=== PATIENT | female | born 1990 | race Caucasian/White ===

== ENCOUNTER → 2016-06-15 | Day surgery (SDC) | payer OTHER ==
[~2016-06-15] VITALS: Ht 175.3 cm; Wt 100.7 kg
[~2016-06-15] MED LIST: ACET50TA PO; BUPIVACAINE/EPIN 0.25% 30 ML VIAL As Ordered ONE; BUPIVACAINE/EPIN 0.25% 30 ML VIAL XX ONE; GLYCOPYRROLATE INJ 0.2 MG/ML 2 ML VIAL As Ordered ONE; IRON65TA PO; LIDOCAINE 2% INJ 100 MG/5 ML SDV (FOR ANES.) As Ordered ONE; LR 1,000 ML IV SCH; MIDAZOLAM INJ 2 MG/2 ML VIAL (J2250) As Ordered ONE; MOTR200T44 PO; NORCO, ANEXSIA 5/325MG TABLET (HYDROcodone/ACETAMINOPHEN) PO PRN; OMEP20CA3 PO; ONDANSETRON 4MG/2ML VIAL (J2405) As Ordered ONE; ONDANSETRON 4MG/2ML VIAL (J2405) IV PRN; PAXI10TA2 PO; PRENTAB40 PO; PROPOFOL 200 MG/20 ML VIAL As Ordered ONE; RISP2TAB3 PO; ROCURONIUM BROMIDE 50 MG/5 ML VIAL As Ordered ONE; SENE8.6T3 PO; SERT-141 PO; TUMS500C PO; fentaNYL 100 MCG/2 ML INJECTION (J3010) As Ordered ONE; fentaNYL 100 MCG/2 ML INJECTION (J3010) IV PRN
[2016-06-15 08:50] LABS: CONTROL LINE UCG INT CTR LINE PRESENT
[2016-06-15 14:00] VITALS: BP 120/80
--- NOTE | 2016-06-15 16:38 | RO ---
DATE OF PROCEDURE: 06/15/2016 PREOPERATIVE DIAGNOSIS: Symptomatic cholelithiasis. POSTOPERATIVE DIAGNOSIS: Symptomatic cholelithiasis. PROCEDURE: Laparoscopic cholecystectomy. SURGEON: Dr. Colon RECREATIONAL LEADER: Dr. Luna ANESTHESIA: General ESTIMATED BLOOD LOSS: 10 COMPLICATIONS: None. INDICATIONS FOR PROCEDURE: The patient 26-year-old female who presents for right upper quadrant abdominal pain, found to have gallstones on ultrasound. Recommends to proceed with laparoscopic possible open cholecystectomy. Risks and procedure not limited but including bleeding, infection, hernia formation, damage surrounding structures, need for further surgery discussed in detail with the patient. Informed consent was obtained and procedure was planned. PROCEDURE: The patient brought back to operating room three. After sufficient sedation, the abdomen was sterilely prepped and draped. Next a time out was done to confirm proper patient and proper procedure. Following that a stab incision was made in the left lower quadrant, Palmers point. A Veress needle was inserted abdomen was insufflated 50 mmHg. Next, a 5 mm infraumbilical incision made. 5 mm Optiview port was used to gain access to the abdomen with a camera. Once inside, the Veress needle site was examined. Thee are no signs of injury. Veress needle was then removed. 10 mm port was placed subxyphoid, two 5 mm ports right upper quadrant. The fundus of gallbladder was then grasped, elevated up towards the right shoulder. Cystic duct and cystic artery were both then clearly dissected. They are both clearly identified. They are both then doubly clipped and cut. Gallbladder was then removed the gallbladder fossa using electrocautery, brought out with a 10 mm EndoCatch bag. Once the gallbladder was removed, the gallbladder fossa was examined. Bleeding was controlled with hemostasis and a little bit of Lesa. Once I was completed, right upper quadrant was irrigated confirm hemostasis. Abdomen was then desufflated. Skin incision closed #4-0 Vicryl subcuticular sutures. Abdomen was cleaned and dried. Steri-Strips, 4 x 4, and tape were applied thus ending procedure.
== END | disposition home or self-care (01) ==
LOC: M SDC 07:50
PROVIDERS: ATTEND Surgery
DX: K80.18 Calculus of gallbladder with other cholecystitis without obstruction (principal); K21.9 Gastro-esophageal reflux disease without esophagitis; F31.9 Bipolar disorder, unspecified; G80.9 Cerebral palsy, unspecified; Z79.899 Other long term (current) drug therapy; F17.210 Nicotine dependence, cigarettes, uncomplicated
CPT/HCPCS: 47562; 84703; 88304; J0690; J2250; J2405; J3010

== ENCOUNTER → 2016-10-06 | Outpatient (CLI) | payer OTHER ==
[~2016-10-06] MED LIST changes: -BUPIVACAINE/EPIN 0.25% 30 ML VIAL As Ordered ONE; -BUPIVACAINE/EPIN 0.25% 30 ML VIAL XX ONE; -GLYCOPYRROLATE INJ 0.2 MG/ML 2 ML VIAL As Ordered ONE; -LIDOCAINE 2% INJ 100 MG/5 ML SDV (FOR ANES.) As Ordered ONE; -LR 1,000 ML IV SCH; -MIDAZOLAM INJ 2 MG/2 ML VIAL (J2250) As Ordered ONE; -NORCO, ANEXSIA 5/325MG TABLET (HYDROcodone/ACETAMINOPHEN) PO PRN; -ONDANSETRON 4MG/2ML VIAL (J2405) As Ordered ONE; -ONDANSETRON 4MG/2ML VIAL (J2405) IV PRN; -PROPOFOL 200 MG/20 ML VIAL As Ordered ONE; -ROCURONIUM BROMIDE 50 MG/5 ML VIAL As Ordered ONE; -SERT-141 PO; +SERT50TA PO; -fentaNYL 100 MCG/2 ML INJECTION (J3010) As Ordered ONE; -fentaNYL 100 MCG/2 ML INJECTION (J3010) IV PRN
== END ==
LOC: M WUC 11:47
PROVIDERS: ATTEND Physician Assistant
DX: Z02.1 Encounter for pre-employment examination (principal)

== ENCOUNTER → 2016-10-26 | Outpatient (CLI) | payer OTHER ==
[~2016-10-26] VITALS: Ht 175.3 cm; Wt 111.1 kg
[~2016-10-26] MED LIST changes: +BACL10TA2 PO; +LIDOCAINE 2% INJ 100 MG/5 ML SDV (FOR ANES.) As Ordered ONE; +NS 1,000 ML IV ONE; +PARO5TAB PO; +POLY150C4 PO; +PROC10TA PO; +PROPOFOL 200 MG/20 ML VIAL As Ordered ONE; +SENE8.6T PO; +SUCR1TAB56 PO; +ePHEDrine SULFATE 25 MG/5 ML(5MG/ML) SYRINGE As Ordered ONE
[2016-10-26 11:20] VITALS: BP 124/72
--- NOTE | 2016-10-26 11:27 | ROOR ---
Patient Name: Rose Akhtar Procedure Date: 10/26/2016 10:47 AM Date of : 1990 Age: 26 Room: [facility] Gender: Female Note Status: Finalized Procedure: Upper GI endoscopy Indications: Abnormal CT of the GI tract Providers: DO Horace Ross MD: SHERYL Vivar Requesting Provider: Medicines: Propofol per Anesthesia Complications: No immediate complications. Procedure: Pre-Anesthesia Assessment: - Prior to the procedure, a History and Physical was performed, and patient medications and allergies were reviewed. The patient is competent. The risks and benefits of the procedure and the sedation options and risks were discussed with the patient. All questions were answered and informed consent was obtained. Patient identification and proposed procedure were verified by the physician, the nurse, the anesthesiologist and the identification technician in the endoscopy suite. Mental Status Examination: alert and oriented. Airway Examination: normal oropharyngeal airway and neck mobility. Respiratory Examination: clear to auscultation. CV Examination: normal. Prophylactic Antibiotics: The patient does not require prophylactic antibiotics. Prior Anticoagulants: The patient has taken no previous anticoagulant or antiplatelet agents. ASA Grade Assessment: II - A patient with mild systemic disease. After reviewing the risks and benefits, the patient was deemed in satisfactory condition to undergo the procedure. The anesthesia plan was to use monitored anesthesia care (MAC). Immediately prior to administration of medications, the patient was re-assessed for adequacy to receive sedatives. The heart rate, respiratory rate, oxygen saturations, blood pressure, adequacy of pulmonary ventilation, and response to care were monitored throughout the procedure. The physical status of the patient was re-assessed after the procedure. The Endoscope was introduced through the mouth, and advanced to the third part of duodenum. The upper GI endoscopy was accomplished without difficulty. The patient tolerated the procedure well. Findings: Mild inflammation characterized by congestion (edema) and linear erosions was found in the prepyloric region of the stomach. Biopsies were taken with a cold forceps for Helicobacter pylori testing. Estimated blood loss was minimal. Impression: - Gastritis. Biopsied. Recommendation: - Patient has a contact number available for emergencies. The signs and symptoms of potential delayed complications were discussed with the patient. Return to normal activities tomorrow. Written discharge instructions were provided to the patient. - Telephone my office for pathology results in 1 week. Ramos Colon DO 10/26/2016 11:27:28 AM This report has been signed electronically. Number of Addenda: 0 Note Initiated On: 10/26/2016 10:47 AM Estimated Blood Loss: Estimated blood loss was minimal.
== END | disposition home or self-care (01) ==
LOC: M OPP 09:51
PROVIDERS: ATTEND Surgery
DX: R93.3 Abnormal findings on diagnostic imaging of other parts of digestive tract (principal); R14.0 Abdominal distension (gaseous); R10.13 Epigastric pain; K21.9 Gastro-esophageal reflux disease without esophagitis; K29.70 Gastritis, unspecified, without bleeding; R12 Heartburn; F41.9 Anxiety disorder, unspecified; F31.9 Bipolar disorder, unspecified; G43.909 Migraine, unspecified, not intractable, without status migrainosus; G80.9 Cerebral palsy, unspecified; F17.210 Nicotine dependence, cigarettes, uncomplicated; Z88.3 Allergy status to other anti-infective agents; Z79.899 Other long term (current) drug therapy; Z80.42 Family history of malignant neoplasm of prostate

== ENCOUNTER 2016-12-28 13:23 | Day surgery (SDC) | payer OTHER ==
[~2016-12-28] VITALS: Ht 175.3 cm; Wt 113.4 kg
[~2016-12-28 13:23] MED LIST changes: +HYDR50TA70 PO; -LIDOCAINE 2% INJ 100 MG/5 ML SDV (FOR ANES.) As Ordered ONE; -NS 1,000 ML IV ONE; +PAXI10TA12 PO; -PAXI10TA2 PO; -PROPOFOL 200 MG/20 ML VIAL As Ordered ONE; +RANI150T PO; +SOMA350T PO; +TIZA4CAP3 PO; -ePHEDrine SULFATE 25 MG/5 ML(5MG/ML) SYRINGE As Ordered ONE
[2016-12-28] MEDS ORDERED: PROPOFOL 200 MG/20 ML VIAL As Ordered ONE (13:30)
[2016-12-28] MEDS ORDERED: MIDAZOLAM INJ 2 MG/2 ML VIAL (J2250) As Ordered ONE (13:30)
[2016-12-28] MEDS ORDERED: ROCURONIUM BROMIDE 50 MG/5 ML VIAL/SYRINGE As Ordered ONE (13:30)
[2016-12-28] MEDS ORDERED: LIDOCAINE 2% INJ 100 MG/5 ML SDV (FOR ANES.) As Ordered ONE (13:30)
[2016-12-28] MEDS ORDERED: fentaNYL 250 MCG/5 ML INJECTION (J3010) As Ordered ONE (13:30)
[2016-12-28] MEDS ORDERED: LR 1,000 ML IV ONE (14:00)
[2016-12-28 14:10] LABS: MEAN CORPUSCULAR HGB CONC 33.7 g/dl (32.0-36.5); RED CELL DISTRIBUTION WIDTH 13.1 % (11.5-14.5); WHITE BLOOD COUNT 8.3 K/mm3 (4.0-10.0)
[2016-12-28 14:15] LABS: CONTROL LINE UCG INT CTR LINE PRESENT
[2016-12-28] MEDS ORDERED: dexameTHASONE 4 MG/ML 1ML VIAL (J1100) As Ordered ONE (15:45)
[2016-12-28] MEDS: BUPIVACAINE HCL 0.25% 30 ML VIAL As Ordered ONE (16:05)
[2016-12-28] MEDS ORDERED: METOCLOPRAMIDE INJ 10MG/2ML VIAL (J2765) As Ordered ONE (16:08)
[2016-12-28] MEDS ORDERED: GLYCOPYRROLATE INJ 0.2 MG/ML 2 ML VIAL As Ordered ONE (16:09)
[2016-12-28] MEDS ORDERED: NEOSTIGMINE 1MG/ML 5 ML SYRINGE (J2710) As Ordered ONE (16:09)
[2016-12-28] MEDS ORDERED: ONDANSETRON 4MG/2ML VIAL (J2405) As Ordered ONE (16:10)
[2016-12-28] MEDS ORDERED: KETOROLAC 60 MG/2 ML VIAL (J1885) As Ordered ONE (16:11)
[2016-12-28] MEDS ORDERED: ALBUTEROL SULFATE 2.5 MG/0.5 ML INH NEB SOLN As Ordered ONE (17:29)
[2016-12-28] MEDS ORDERED: OXYC1TAB23 PO (17:30)
[2016-12-28] MEDS ORDERED: fentaNYL 100 MCG/2 ML INJECTION (J3010) IV PRN (17:45)
[2016-12-28] MEDS ORDERED: PERCOCET 5MG/325MG TAB PO PRN ×3 (17:45→18:00)
[2016-12-28] MEDS ORDERED: LR 1,000 ML IV SCH ×2 (17:45)
[2016-12-28] MEDS ORDERED: ALBUTEROL SULFATE 2.5 MG/0.5 ML INH NEB SOLN INH ONE (17:45)
[2016-12-28] MEDS ORDERED: HYDROmorphone HCL 1 MG/ML SYRINGE (J1170) IV PRN (17:45)
[2016-12-28] MEDS ORDERED: ONDANSETRON 4MG/2ML VIAL (J2405) IV PRN (17:45)
[2016-12-28 19:15] VITALS: BP 135/78
--- NOTE | 2016-12-29 19:22 | RO ---
DATE OF PROCEDURE: 12/28/2016 PREOPERATIVE DIAGNOSIS: Undesired fertility. POSTOPERATIVE DIAGNOSIS: Undesired fertility. PROCEDURE: Laparoscopic tubal ligation. Falope ring placed on the left tube and partial salpingectomy on the right tube. SURGEON: Pipe Balderrama MD ANESTHESIA: General endotracheal. ESTIMATED BLOOD LOSS: Minimal. FINDINGS: Normal uterus. Adhesions of the right fallopian tube to the ovary and right pelvic sidewall. Normal appearing left fallopian tube and ovary, normal upper abdomen. DESCRIPTION OF PROCEDURE: Operative Summary: The patient was taken to the operating room where general endotracheal anesthesia was induced. She was prepped and draped in a sterile fashion in the dorsal lithotomy position. The bladder was emptied with a catheter. A sponge stick was placed as a uterine manipulator in the vagina. A periumbilical incision was made with the scalpel. A Veress needle was placed through this incision. A saline-filled syringe was used to assess intraperitoneal location of the Veress needle. A pneumoperitoneum was created. The Veress needles was removed. A 5 mm trocar with Visiport was inserted directly. An 8 mm suprapubic port was placed under direct visualization. Visualization of the abdomen and pelvis revealed the findings noted above. Due to adhesions of the right fallopian tube it was not possible to place any kind of device, such as a band or a clip, on the right tube. The tube was also dilated. Incision was made to partially remove the tube on the right side. A Harmonic scalpel was utilized and a 5 mm port was placed. Grasping instruments were used to elevate the tube. The tube was amputated at its initiation point and the distal portion of the tube was excised with the Harmonic scalpel. The segment of tube was then removed through the port. A Falope ring was applied without difficulty to the left fallopian tube at its midportion and excellent application was noted. Adhesions of the right fallopian tube were taken down sharply. The pneumoperitoneum was released and all instruments were removed. Sponge, instrument and needle counts were correct. Skin was closed with #4-0 Monocryl. The patient was extubated and went to the recovery room in stable condition.
== END 2016-12-28 19:15 | disposition home or self-care (01) ==
LOC: M SDC 13:23
PROVIDERS: ATTEND Specialist
DX: Z30.2 Encounter for sterilization (principal); N73.6 Female pelvic peritoneal adhesions (postinfective); N70.91 Salpingitis, unspecified; G80.2 Spastic hemiplegic cerebral palsy; D64.9 Anemia, unspecified; F17.210 Nicotine dependence, cigarettes, uncomplicated; Z79.899 Other long term (current) drug therapy; F31.9 Bipolar disorder, unspecified; K21.9 Gastro-esophageal reflux disease without esophagitis; F32.9 Major depressive disorder, single episode, unspecified; F41.9 Anxiety disorder, unspecified

== ENCOUNTER → 2017-02-01 | Outpatient (REF) | payer OTHER ==
[~2017-02-01] MED LIST changes: +OXYC1TAB23 PO
[2017-02-01 20:14] LABS: FOLATE 6.1 NG/ML; VITAMIN B12 LEVEL 711 PG/ML
[2017-02-01 20:26] LABS: ALBUMIN 3.9 GM/DL (3.2-5.2); ALBUMIN/GLOBULIN RATIO 1.05 (1.00-1.93); ALKALINE PHOSPHATASE 98 U/L (45-117); ALT/SGPT 37 U/L (12-78); ANION GAP 10 MEQ/L (8-16); AST/SGOT 16 U/L (15-37); BILIRUBIN,TOTAL 0.2 MG/DL (0.2-1.0); BLOOD UREA NITROGEN 10 MG/DL (7-18); CARBON DIOXIDE LEVEL 26 MEQ/L (21-32); CHLORIDE LEVEL 104 MEQ/L (98-107); CREATININE FOR GFR 0.91 MG/DL (0.55-1.02); FERRITIN 39 NG/ML (8-252); GLOMERULAR FILTRATION RATE > 60.0 (>60); GLUCOSE, FASTING 85 MG/DL (70-105); POTASSIUM SERUM 4.2 MEQ/L (3.5-5.1); SODIUM LEVEL 140 MEQ/L (136-145); TOTAL PROTEIN 7.6 GM/DL (6.4-8.2)
== END ==
LOC: M SFHCADAM 16:26
PROVIDERS: ATTEND Physician Assistant
DX: G62.9 Polyneuropathy, unspecified (principal); R53.82 Chronic fatigue, unspecified

== ENCOUNTER 2017-05-01 23:20 | Emergency (ER) | payer MEDICAID, OTHER, SELFPAY ==
[~2017-05-01] VITALS: Ht 177.8 cm; Wt 113.6 kg
[2017-05-01 23:21] VITALS: BP 135/85
[2017-05-01] MEDS ORDERED: CLAR1TAB2 PO (23:44)
[2017-05-01] MEDS ORDERED: BACL1TAB8 GT (23:44)
[2017-05-01] MEDS ORDERED: LYRI75CA (23:44)
== END 2017-05-02 00:29 | disposition left against medical advice (07) ==
LOC: M ED 23:20
DX: K08.89 Other specified disorders of teeth and supporting structures (principal); Z53.21 Procedure and treatment not carried out due to patient leaving prior to being seen by health care provider

== ENCOUNTER 2017-08-04 10:34 | Day surgery (SDC) | payer MEDICAID, OTHER ==
[2017-08-04] MEDS: ONDANSETRON 4MG/2ML VIAL (J2405) IV ×2 (11:09)
[2017-08-04] MEDS: MORPHINE 4 MG/ML 1ML VIAL (J2270) IV ×2 (11:09)
[2017-08-04] MEDS: HYDROmorphone HCL 1 MG/ML SYRINGE (J1170) IV ×2 (11:38)
[2017-08-04] MEDS: NS 1,000 ML IV ×2 (12:00)
[2017-08-04] MEDS ORDERED: NS 1,000 ML IV ×2 (12:12)
[2017-08-04] MEDS: PROPOFOL 200 MG/20 ML VIAL IV ×2 (12:41)
[2017-08-04] MEDS ORDERED: MORPHINE 4 MG/ML 1ML VIAL (J2270) IV ×2 (15:15)
[2017-08-04] MEDS ORDERED: ROCURONIUM BROMIDE 50 MG/5 ML VIAL As Ordered ×4 (16:05→17:33)
[2017-08-04] MEDS ORDERED: fentaNYL 100 MCG/2 ML INJECTION (J3010) As Ordered ×2 (16:05)
[2017-08-04] MEDS ORDERED: LIDOCAINE 2% INJ 100 MG/5 ML SDV (FOR ANES.) As Ordered ×2 (16:05)
[2017-08-04] MEDS ORDERED: dexameTHASONE 4 MG/ML 1ML VIAL (J1100) As Ordered ×2 (16:05)
[2017-08-04] MEDS ORDERED: ONDANSETRON 4MG/2ML VIAL (J2405) As Ordered ×2 (16:05)
[2017-08-04] MEDS ORDERED: PROPOFOL 200 MG/20 ML VIAL As Ordered ×2 (16:05)
[2017-08-04] MEDS ORDERED: MIDAZOLAM INJ 2 MG/2 ML VIAL (J2250) As Ordered ×2 (16:05)
[2017-08-04] MEDS ORDERED: NEOSTIGMINE 10 MG/10 ML VIAL (J2710) As Ordered ×2 (16:05)
[2017-08-04] MEDS ORDERED: KETOROLAC 60 MG/2 ML VIAL (J1885) As Ordered ×2 (16:05)
[2017-08-04] MEDS ORDERED: GLYCOPYRROLATE INJ 0.2 MG/ML 2 ML VIAL As Ordered ×2 (16:05)
[2017-08-04] MEDS ORDERED: ceFAZolin 2 GM/D5W 50 ML IV BAG (J0690 PER 500MG) As Ordered ×2 (17:08)
[2017-08-04] MEDS ORDERED: HYDROmorphone HCL 2 MG/ML 1ML VIAL (J1170) As Ordered ×2 (17:30)
[2017-08-04] MEDS: BUPIVACAINE HCL 0.25% 30 ML VIAL As Ordered ×2 (17:30)
[2017-08-04] MEDS ORDERED: METOCLOPRAMIDE INJ 10MG/2ML VIAL (J2765) IV ×2 (19:15)
[2017-08-04] MEDS ORDERED: fentaNYL 100 MCG/2 ML INJECTION (J3010) IV ×2 (19:15)
[2017-08-04] MEDS ORDERED: MORPHINE 10 MG/ML 1ML VIAL (J2270) IV ×2 (19:15)
[2017-08-04] MEDS: LR 1,000 ML IV ×2 (19:15)
[2017-08-04] MEDS ORDERED: ONDANSETRON 4MG/2ML VIAL (J2405) IV ×4 (19:15)
[2017-08-04] MEDS ORDERED: PERCOCET 5MG/325MG TAB PO ×2 (19:15)
[2017-08-04] MEDS: PERCOCET 5MG/325MG TAB PO ×2 (23:53)
[2017-08-05] MEDS: PERCOCET 5MG/325MG TAB PO ×6 (06:29→20:02)
[2017-08-05] MEDS: LR 1,000 ML IV ×4 (08:35→21:07)
[2017-08-05] MEDS: SERTRALINE 100 MG TAB PO ×2 (09:00)
[2017-08-05] MEDS: PREGABALIN 75 MG CAP(LYRICA) PO ×4 (09:19→20:00)
[2017-08-05] MEDS: SUCRALFATE 1 GM TAB PO ×4 (09:19→20:05)
[2017-08-05] MEDS: risperiDONE 2 MG TAB PO ×4 (09:20→20:05)
[2017-08-05] MEDS: NAPROXEN 250 MG TAB PO ×4 (09:20→20:06)
[2017-08-05] MEDS ORDERED: hydrOXYzine 50 MG TAB PO ×2 (14:30)
[2017-08-05] MEDS: ACETAMINOPHEN TAB 650MG DOSE (2X325MG) PO ×2 (16:29)
[2017-08-05] MEDS: NICOTINE 21MG/24HR 1 EA TRANSDERMAL TD ×2 (16:29)
[2017-08-05] MEDS: PRAZOSIN 1 MG CAP PO ×2 (20:04)
[2017-08-05] MEDS: ASPIRIN 325 MG TAB PO ×2 (20:05)
[2017-08-05] MEDS: BACLOFEN 10 MG TAB PO ×2 (20:07)
[2017-08-06] MEDS: PERCOCET 5MG/325MG TAB PO ×4 (03:37→10:08)
[2017-08-06] MEDS: ASPIRIN 325 MG TAB PO ×2 (08:32)
[2017-08-06] MEDS: SUCRALFATE 1 GM TAB PO ×2 (08:32)
[2017-08-06] MEDS: risperiDONE 2 MG TAB PO ×2 (08:33)
[2017-08-06] MEDS: PREGABALIN 75 MG CAP(LYRICA) PO ×2 (08:33)
[2017-08-06] MEDS: SERTRALINE 100 MG TAB PO ×2 (08:33)
[2017-08-06] MEDS: NICOTINE 21MG/24HR 1 EA TRANSDERMAL TD ×2 (08:35)
[2017-08-06] MEDS: NAPROXEN 250 MG TAB PO ×2 (10:05)
[2017-08-06] MEDS: LR 1,000 ML IV ×2 (10:53)
== END 2017-08-06 16:25 | disposition home or self-care (01) ==
LOC: M SDC 08-06 16:25 → M ED 10:34 → M SDC 16:07 → M MSPAV 19:45
DX: S82.841A Displaced bimalleolar fracture of right lower leg, initial encounter for closed fracture (principal); W00.0XXA Fall on same level due to ice and snow, initial encounter; Y92.89 Other specified places as the place of occurrence of the external cause; Y93.89 Activity, other specified; Y99.8 Other external cause status; G80.1 Spastic diplegic cerebral palsy; F99 Mental disorder, not otherwise specified; D64.9 Anemia, unspecified; G43.909 Migraine, unspecified, not intractable, without status migrainosus; Z88.8 Allergy status to other drugs, medicaments and biological substances; Z91.048 Other nonmedicinal substance allergy status; Z79.899 Other long term (current) drug therapy; Z98.51 Tubal ligation status; Z72.0 Tobacco use
CPT/HCPCS: 27814

== ENCOUNTER → 2017-11-06 | Outpatient (CLI) | payer OTHER | LOC: M PAIN 14:30 | DX: G89.29 Other chronic pain (principal); M79.1 Myalgia; G80.9 Cerebral palsy, unspecified; F90.9 Attention-deficit hyperactivity disorder, unspecified type; F31.9 Bipolar disorder, unspecified; G43.909 Migraine, unspecified, not intractable, without status migrainosus; F17.210 Nicotine dependence, cigarettes, uncomplicated; K21.9 Gastro-esophageal reflux disease without esophagitis; Z86.69 Personal history of other diseases of the nervous system and sense organs; Z79.82 Long term (current) use of aspirin; Z79.891 Long term (current) use of opiate analgesic; Z79.899 Other long term (current) drug therapy; Z88.8 Allergy status to other drugs, medicaments and biological substances | CPT/HCPCS: G0463 ==

== ENCOUNTER → 2017-12-15 | Outpatient (CLI) | payer OTHER ==
[2017-12-15 13:36] LABS: BASO # 0.1 10^3/uL (0.0-0.2); BASO % 0.9 % (0.0-1.0); EOS # 0.3 10^3/uL (0.0-0.50); EOS % 3.1 % (0.0-3.0); HEMATOCRIT 41.1 % (36.0-47.0); HEMOGLOBIN 13.6 g/dl (12.0-15.5); IMMATURE GRANULOCYTE % 0.2 % (0-3.0); LYMPH # 2.4 10^3/uL (1.5-6.5); LYMPH % 27.5 % (24.0-44.0); MEAN CORPUSCULAR HEMOGLOBIN 27.1 pg (27.0-33.0); MEAN CORPUSCULAR HGB CONC 33.1 g/dl (32.0-36.5); MEAN CORPUSCULAR VOLUME 81.9 fl (80.0-96.0); MONO # 0.4 10^3/uL (0.0-0.8); MONO % 4.7 % (0.0-5.0); NEUTROPHILS # 5.5 10^3/uL (1.8-7.7); NEUTROPHILS % 63.6 % (36.0-66.0); PLATELET COUNT, AUTOMATED 304 10^3/uL (150-450); RED BLOOD COUNT 5.02 10^6/uL (4.00-5.40); RED CELL DISTRIBUTION WIDTH 14.6 % (11.5-14.5); WHITE BLOOD COUNT 8.6 10^3/uL (4.0-10.0)
[2017-12-15 14:01] LABS: ERYTHROCYTE SEDIMENTATION RATE 13 mm/hr (0-20)
[2017-12-15 14:18] LABS: C REACTIVE PROTEIN QUANTITATIV 1.79 MG/DL (0.00-0.30)
== END ==
LOC: M LAB 12:52
DX: S82.841D Displaced bimalleolar fracture of right lower leg, subsequent encounter for closed fracture with routine healing (principal); W18.30XD Fall on same level, unspecified, subsequent encounter; Y92.009 Unspecified place in unspecified non-institutional (private) residence as the place of occurrence of the external cause
CPT/HCPCS: 86140

== ENCOUNTER → 2018-04-17 | Outpatient (REF) | payer OTHER ==
[2018-04-17 21:59] LABS: CHLAMYDIA DNA AMPLIFICATION NEGATIVE (NEGATIVE); GC DNA AMPLIFICATION NEGATIVE (NEGATIVE)
== END ==
LOC: M LAB REF 17:23
DX: Z11.3 Encounter for screening for infections with a predominantly sexual mode of transmission (principal)
CPT/HCPCS: 87591

== ENCOUNTER → 2018-09-14 | Outpatient (CLI) | payer OTHER ==
[~2018-09-14] MED LIST changes: -ACET50TA PO; +ASPI-1 PO; +BACL1TAB8 PO; +BACT800T5 PO; +CARA1TAB6 PO; +CLAR1TAB2 PO; +LYRI150C PO; +LYRI75CA PO; +MAPA500T2 PO; +NAPR-837 PO; +PERC5TAB12 PO; +PRAZ1CAP PO; -PROC10TA PO; +PROC10TA4 PO; -SENE8.6T PO; +SENN1TAB38 PO; +SERT-138 PO; +SERT-141 PO; -SERT50TA PO; +SUCR1TA PO; +TIZA4CAP PO; -TIZA4CAP3 PO; +TYLE325T5 PO
[2018-09-14 09:15] LABS: BASO # 0.1 10^3/uL (0.0-0.2); BASO % 1.2 % (0.0-1.0); EOS # 0.4 10^3/uL (0.0-0.50); EOS % 4.8 % (0.0-3.0); HEMATOCRIT 39.8 % (36.0-47.0); HEMOGLOBIN 12.6 g/dl (12.0-15.5); LYMPH # 2.3 10^3/uL (1.5-6.5); LYMPH % 26.8 % (24.0-44.0); MEAN CORPUSCULAR HEMOGLOBIN 28.1 pg (27.0-33.0); MEAN CORPUSCULAR HGB CONC 31.7 g/dl (32.0-36.5); MEAN CORPUSCULAR VOLUME 88.8 fl (80.0-96.0); MONO # 0.4 10^3/uL (0.0-0.8); MONO % 4.1 % (0.0-5.0); NEUTROPHILS # 5.3 10^3/uL (1.8-7.7); NEUTROPHILS % 62.7 % (36.0-66.0); PLATELET COUNT, AUTOMATED 307 10^3/uL (150-450); RED BLOOD COUNT 4.48 10^6/uL (4.00-5.40); WHITE BLOOD COUNT 8.5 10^3/uL (4.0-10.0)
[2018-09-14 09:26] LABS: ALBUMIN 3.5 GM/DL (3.2-5.2); ALT/SGPT 22 U/L (12-78); BILIRUBIN,TOTAL 0.3 MG/DL (0.2-1.0); BLOOD UREA NITROGEN 10 MG/DL (7-18); CALCIUM LEVEL 8.8 MG/DL (8.5-10.1); CARBON DIOXIDE LEVEL 27 MEQ/L (21-32); CHLORIDE LEVEL 109 MEQ/L (98-107); CHOLESTEROL LEVEL 200 MG/DL (<200); CHOLESTEROL RISK RATIO 3.636 (<5); FREE T4 1.03 NG/DL (0.76-1.46); GLOMERULAR FILTRATION RATE > 60.0 (>60); GLUCOSE, FASTING 77 MG/DL (70-100); HDL CHOLESTEROL 55 MG/DL (>40); LDL CHOLESTEROL 102 MG/DL (<100); LITHIUM LEVEL 0.64 MEQ/L (0.60-1.20); NON-HDL-C 145 MG/DL; POTASSIUM SERUM 4.6 MEQ/L (3.5-5.1); SODIUM LEVEL 140 MEQ/L (136-145); TRIGLYCERIDES LEVEL 215 MG/DL (<150)
== END ==
LOC: M LAB 07:45
PROVIDERS: ATTEND Nurse Practitioner Family
DX: Z00.00 Encounter for general adult medical examination without abnormal findings (principal)

== ENCOUNTER → 2019-02-12 | Outpatient (CLI) | payer OTHER ==
[~2019-02-12] MED LIST changes: -OMEP20CA3 PO; +OMEP20CA4 PO
[2019-02-12 21:42] LABS: HEMOGLOBIN A1c 5.3 %
== END ==
LOC: M WUC 17:07
PROVIDERS: ATTEND Family Medicine
DX: Z00.01 Encounter for general adult medical examination with abnormal findings (principal); Z13.228 Encounter for screening for other metabolic disorders

== ENCOUNTER 2019-03-09 21:31 | Emergency (ER) | payer OTHER ==
[~2019-03-09] VITALS: Ht 177.8 cm; Wt 118.2 kg
[2019-03-09] MEDS ORDERED: LITH300T2 (21:54)
[2019-03-09] MEDS ORDERED: PREG200C (21:54)
[2019-03-09] MEDS ORDERED: METH36TA5 (21:54)
[2019-03-09 22:11] LABS: BASO # 0.1 10^3/uL (0.0-0.2); BASO % 1.2 % (0.0-1.0); EOS # 0.5 10^3/uL (0.0-0.5); EOS % 4.3 % (0.0-3.0); HEMATOCRIT 39.8 % (36.0-47.0); HEMOGLOBIN 12.6 g/dl (12.0-15.5); LYMPH # 3.3 10^3/uL (1.5-5.0); LYMPH % 27.7 % (24.0-44.0); MEAN CORPUSCULAR HEMOGLOBIN 27.9 pg (27.0-33.0); MEAN CORPUSCULAR HGB CONC 31.7 g/dl (32.0-36.5); MEAN CORPUSCULAR VOLUME 88.1 fl (80.0-96.0); MONO # 0.6 10^3/uL (0.0-0.8); MONO % 4.8 % (0.0-5.0); NEUTROPHILS # 7.4 10^3/uL (1.5-8.5); NEUTROPHILS % 61.7 % (36.0-66.0); PLATELET COUNT, AUTOMATED 351 10^3/uL (150-450); RED BLOOD COUNT 4.52 10^6/uL (4.00-5.40)
[2019-03-09 22:20] LABS: INR 1.04; PROTHROMBIN TIME 13.3 SECONDS (11.8-14.0)
[2019-03-09 22:21] LABS: PARTIAL THROMBOPLASTIN TIME 27.8 SECONDS (25.0-38.4)
[2019-03-09 22:38] LABS: ABG BASE EXCESS -3.3 (-2.0-2.0); ABG HCO3 19.6 MEQ/L (22.0-26.0); ABG PARTIAL PRESSURE CO2 29.4 mmHg (35.0-45.0); ABG PARTIAL PRESSURE O2 152.5 mmHg (75.0-100.0); ABG STANDARD HCO3 21.8 MEQ/L (22.0-26.0); ABG TOTAL CO2 20.5 MEQ/L (22.0-29.0); ABG pH (ARTERIAL) 7.442 UNITS (7.350-7.450)
[2019-03-09 22:42] LABS: BLOOD UREA NITROGEN 7 MG/DL (7-18); CALCIUM LEVEL 8.7 MG/DL (8.5-10.1); CARBON DIOXIDE LEVEL 26 MEQ/L (21-32); CHLORIDE LEVEL 109 MEQ/L (98-107); CK-MB VALUE MASS < 1.0 NG/ML (<3.6); CPK CREATINE PHOSPHOKINASE 58 U/L (26-192); CREATININE FOR GFR 0.91 MG/DL (0.55-1.30); GLOMERULAR FILTRATION RATE > 60.0 (>60); GLUCOSE, FASTING 84 MG/DL (70-100); LITHIUM LEVEL 0.59 MEQ/L (0.60-1.20); MB/CK RELATIVE INDEX 1.72 (< OR =4); POTASSIUM SERUM 4.1 MEQ/L (3.5-5.1); SODIUM LEVEL 140 MEQ/L (136-145); TROPONIN I < 0.02 NG/ML (< 0.10)
--- NOTE | 2019-03-09 22:46 | REPVR ---
PROCEDURE INFORMATION: Exam: US Duplex Right Lower Extremity Veins, Limited Exam date and time: 03/09/2019 10:28 PM Clinical history: 29 years old, female; Pain; Leg, lower; Right; Prior surgery; Surgery date: 6+ months; Additional info: Pain swell TECHNIQUE: Imaging protocol: Real-time Duplex ultrasound of the Right Lower Extremity with 2-D proctor scale, color Doppler flow and spectral waveform analysis with image documentation. Limited exam was focused on the right lower extremity veins. COMPARISON: No relevant prior studies available. FINDINGS: Right deep veins: Unremarkable. The common femoral, femoral, proximal profunda femoral, popliteal and posterior tibial veins are patent without thrombus. Normal Doppler waveforms. Normal compressibility and/or augmentation response. Right superficial veins: Unremarkable. Saphenofemoral junction is patent without thrombus. Soft tissues: Unremarkable. IMPRESSION: No sonographic evidence of deep vein thrombosis. Electronically signed by: Raphael Hollingsworth On 03/09/2019 22:45:37 PM
[2019-03-09 23:00] VITALS: BP 127/78
[2019-03-09] MEDS ORDERED: KETOROLAC 30 MG/ML VIAL (J1885) IV ONE (23:15)
[2019-03-09] MEDS ORDERED: KETO10TAB PO (23:43)
--- NOTE | 2019-03-10 09:07 | REP ---
REASON: Chest pain. FINDINGS: The technique utilized in obtaining the radiograph has magnified the cardiac silhouette and accentuated the interstitial markings. The superior mediastinal structures are midline. The cardiac silhouette is unremarkable in size, shape, and position. The diaphragmatic surfaces of the lungs are regular, and the costophrenic angles are clear. The pulmonary brown are clear. The imaged osseous structures are intact. IMPRESSION: There is no acute cardiopulmonary disease. Electronically Signed by Anastacio Perez DO 03/10/2019 09:12 A
--- NOTE | 2019-03-10 19:05 | ECGEPIP ---
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
== END 2019-03-09 23:57 | disposition home or self-care (01) ==
LOC: M ED 21:31
DX: R07.9 Chest pain, unspecified (principal); G80.9 Cerebral palsy, unspecified; F17.210 Nicotine dependence, cigarettes, uncomplicated; F31.9 Bipolar disorder, unspecified; F12.20 Cannabis dependence, uncomplicated; Z88.8 Allergy status to other drugs, medicaments and biological substances; Z79.899 Other long term (current) drug therapy
CPT/HCPCS: 36600; 71045; 80048; 80178; 82550; 82553; 82803; 85025; 85610; 85730; 93005; 93041; 93971; 96374; 99285; J1885

== ENCOUNTER → 2019-05-11 | Outpatient (CLI) | payer OTHER ==
[~2019-05-11] MED LIST changes: +KETO10TAB PO; +LITH300T2; +METH36TA5; +OMEP-172 PO; -OMEP20CA4 PO; +PREG200C
[2019-05-11 13:40] LABS: BASO # 0.1 10^3/uL (0.0-0.2); EOS # 0.4 10^3/uL (0.0-0.5); EOS % 2.7 % (0.0-3.0); HEMATOCRIT 41.6 % (36.0-47.0); HEMOGLOBIN 12.7 g/dl (12.0-15.5); LYMPH % 15.4 % (24.0-44.0); MEAN CORPUSCULAR HGB CONC 30.5 g/dl (32.0-36.5); MEAN CORPUSCULAR VOLUME 91.6 fl (80.0-96.0); MONO # 0.5 10^3/uL (0.0-0.8); MONO % 3.6 % (0.0-5.0); NEUTROPHILS # 9.9 10^3/uL (1.5-8.5); NEUTROPHILS % 76.9 % (36.0-66.0); PLATELET COUNT, AUTOMATED 352 10^3/uL (150-450); RED BLOOD COUNT 4.54 10^6/uL (4.00-5.40); WHITE BLOOD COUNT 12.8 10^3/uL (4.0-10.0)
[2019-05-11 13:53] LABS: ALBUMIN 3.8 GM/DL (3.2-5.2); ALT/SGPT 21 U/L (12-78); BILIRUBIN,TOTAL 0.2 MG/DL (0.2-1.0); BLOOD UREA NITROGEN 8 MG/DL (7-18); CALCIUM LEVEL 8.9 MG/DL (8.5-10.1); CARBON DIOXIDE LEVEL 26 MEQ/L (21-32); CHLORIDE LEVEL 108 MEQ/L (98-107); CREATININE FOR GFR 0.72 MG/DL (0.55-1.30); GLOMERULAR FILTRATION RATE > 60.0 (>60); GLUCOSE, FASTING 85 MG/DL (70-100); POTASSIUM SERUM 4.2 MEQ/L (3.5-5.1); RHEUMATOID FACTOR QUANT < 10.0 IU/ML (<15.0); SODIUM LEVEL 143 MEQ/L (136-145); TOTAL PROTEIN 7.4 GM/DL (6.4-8.2)
[2019-05-11 13:56] LABS: HEMOGLOBIN A1c 4.7 %
[2019-05-11 14:07] LABS: ERYTHROCYTE SEDIMENTATION RATE 9 mm/hr (0-20)
[2019-05-13 10:29] LABS: VITAMIN B12 LEVEL 423 PG/ML
[2019-05-13 10:30] LABS: FOLATE 2.2 NG/ML
[2019-05-14 10:20] LABS: DRVV SCREEN 37.1 SEC
[2019-05-14 10:26] LABS: PTT LUPUS TYPE ANTICOAG SCREEN 0.9 (0-1.2)
[2019-05-14 12:41] LABS: ALBUMIN 4.14 GM/DL (3.29-5.55); ALBUMIN % 55.9 % (55.8-66.1); ALPHA-1-GLOBULIN % 5.5 % (2.9-4.9); ALPHA-1-GLOBULINS 0.41 GM/DL (0.17-0.41); ALPHA-2-GLOBULINS 0.87 GM/DL (0.42-0.99); ALPHA-2-GLOBULINS % 11.8 % (7.1-11.8); BETA-1-GLOBULINS % 6.8 % (4.7-7.2); BETA-2-GLOBULINS 0.38 GM/DL (0.19-0.55); BETA-2-GLOBULINS % 5.1 % (3.2-6.5); GAMMA GLOBULIN % 14.9 % (11.1-18.8)
== END ==
LOC: M WUC 11:03
PROVIDERS: ATTEND Psychiatry & Neurology Neurology
DX: G62.9 Polyneuropathy, unspecified (principal)

== ENCOUNTER → 2020-06-10 | Outpatient (REF) | payer OTHER ==
[~2020-06-10] MED LIST changes: -OMEP-172 PO; +OMEP1CAP73 PO; +RISP-9 PO; -RISP2TAB3 PO
[2020-06-10 20:04] LABS: CHLAMYDIA DNA AMPLIFICATION NEGATIVE (NEGATIVE); GC DNA AMPLIFICATION NEGATIVE (NEGATIVE)
== END ==
LOC: M SFHCWAGY 16:46
PROVIDERS: ATTEND Specialist
DX: Z20.2 Contact with and (suspected) exposure to infections with a predominantly sexual mode of transmission (principal); Z01.419 Encounter for gynecological examination (general) (routine) without abnormal findings; Z12.4 Encounter for screening for malignant neoplasm of cervix

== ENCOUNTER → 2020-07-06 | Outpatient (CLI) | payer OTHER | LOC: M PT 14:14 | PROVIDERS: ATTEND Physician Assistant Medical | DX: I63.89 Other cerebral infarction (principal); G80.2 Spastic hemiplegic cerebral palsy; R26.81 Unsteadiness on feet; M21.371 Foot drop, right foot ==

== ENCOUNTER → 2020-07-19 | Outpatient (CLI) | payer OTHER ==
[~2020-07-19] MED LIST changes: +CLON-412 PO; +CONC36TA4 PO; +CYMB1CAP4 PO; +LAMI25TA PO; -LITH300T2; +LITH300T2 PO; +TRAZ-186 PO
== END ==
LOC: M LABSMTC 09:29
PROVIDERS: ATTEND Anesthesiology
DX: Z01.818 Encounter for other preprocedural examination (principal); Z11.52 Encounter for screening for COVID-19

== ENCOUNTER 2020-07-24 08:32 | Day surgery (SDC) | payer OTHER ==
[~2020-07-24] VITALS: Ht 185.4 cm; Wt 105.0 kg
[~2020-07-24 08:32] MED LIST changes: +LR 1,000 ML IV ONE; +ceFAZolin SOD 2 GM in IV 1 EA IV ONE
--- OUTSIDE RECORDS SUMMARY | 2020-07-24 08:35 | CCD ---
Author Organization Unknown Address [address] [place] [address] Phone [phone] Care Team Providers Care Pressure Steamer Tender Name Role Phone [place] Narendra Unavailable Unavailable Allergies Code Code System Name Reaction Severity Status Onset 5933 RxNorm Iodine Active 07/31/2018 Medications Name Status Start Date Stop Date albuterol sulfate HFA 90 mcg/actuation aerosol inhaler Active Not available alprazolam 0.5 mg tablet Completed 020 amoxicillin 875 mg-potassium clavulanate 125 mg tablet Completed 03/24/2020 baclofen 10 mg tablet TAKE ONE TABLET BY MOUTH FOUR TIMES DAILY Active Not available clindamycin HCl 300 mg capsule Completed clonidine HCl 0.1 mg tablet TAKE ONE TABLET BY MOUTH TWICE DAILY Active No t available duloxetine 30 mg capsule,delayed release TAKE ONE CAPSULE BY MOUTH ONCE DAILY Active No t available fluconazole 150 mg tablet Completed 2019 fluticasone propionate 50 mcg/actuation nasal spray,suspension A ctive Not available ketorolac 10 mg tablet Completed 0 lamotrigine 100 mg tablet TAKE ONE TABLET BY MOUTH ONCE DAILY Active Not available lamotrigine 25 mg tablet TAKE TWO TABLETS BY MOUTH ONCE DAILY Active No t available lithium carbonate 300 mg capsule Completed 03/24/2020 lithium carbonate 300 mg tablet TAKE ONE TABLET BY MOUTH EVERY MORNING and TAKE TWO TABLETS BY MOUTH EVERY EVENING Active Not available methylphenidate ER 36 mg tablet,extended release 24 hr TAKE ONE TABLET BY MOUTH EVERY MORNING MAX DAILY DOSE ONE TABLET Active Not available nicotine 14 mg/24 hr daily transdermal patch Completed 03/24/2020 omeprazole 20 mg capsule,delayed release Completed 03/24/2020 prednisone 10 mg tablet Completed 03/24/20 20 prednisone 20 mg tablet Completed 03/24/20 20 pregabalin 100 mg capsule Completed 2019 pregabalin 200 mg capsule Completed 2019 pregabalin 75 mg capsule Active Not darrian ilable prochlorperazine maleate 10 mg tablet Completed 03/24/2020 propranolol 10 mg tablet Completed 020 Saline Nasal 0.65 % spray aerosol Active Not available Saphris 2.5 mg sublingual tablet Completed 03/24/2020 sulfamethoxazole 800 mg-trimethoprim 160 mg tablet TAKE ONE TABLET BY MOUTH TWICE A DAY FOR 5 DAYS Active Not available trazodone 50 mg tablet TAKE THREE TABLETS BY MOUTH AT BEDTIME Active Not available Vraylar 1.5 mg capsule TAKE ONE CAPSULE BY MOUTH ONCE DAILY Active No t available Problems Name Status Onset Date Source Cerebral Palsy Active 07/31/2018 History Ingrowing Nail Active 07/31/2018 History Endocrine/metabolic Screening Active 07/31/2018 Hi story Procedure by Method Active 07/31/2018 History Metabolic Syndrome X Active 10/16/2018 History Disorder of Soft Tissue Active 10/16/2018 History General Finding of Observation of Patient Active 2018 History Clinical Finding Active 10/16/2018 History Finding by Site Active 10/26/2018 History Tingling of Skin Active 02/15/2019 History Acute Vaginitis Active 03/22/2019 History Allergic Rhinitis Active 11/18/2019 History Mild Intermittent Asthma Active 11/18/2019 History Procedures Notes: Reconstruction Sx Right Ankle, Co rrective Sx Right Ankle Results Lab Results Date Name Specimen Result Interpretation Description Value Range Status Address 03/25/2020 PPD (Purified Protein Derivative), Skin Test No observation recorded. Main [facility] [place]: [address] [place] [address] Past Encounters 07/20/2020 Menorrhagia Narendra Haynes MD: [address] [place] [phone], Ph. 03/26/2020 Narendra Haynes MD: [address] [place] [phone], Ph. 03/24/2020 Tuberculosis Screening; Administrative Reason for Encounter Narendra Haynes MD: [address] [place] [phone], Ph. Social History Tobacco Smoking Status Heavy Tobacco Smoker (1 PPD) Vaccine List None recorded. Plan of Care Reminders Provider Appointments None recorded. Lab None recorded. Referral None recorded. Procedures None recorded. Surgeries None recorded. Imaging None recorded. Vitals 07/20/2020 02:20PM MEDICAL CLEARANCE Height Weight BMI Blood Pressure 70 in 236 lbs 33.9 kg/m2 102/67 mm[Hg] 03/24/2020 02:00PM ESTABLISHED [id number] Height Weight BMI Blood Pressure 70 in 251 lbs 8 oz 36.1 kg/m2 112/77 mm[Hg] 01/17/2020 Height Weight BMI Blood Pressure 70 in 262 lbs 37.73 kg/m2 104/71 mm[Hg] 11/18/2019 Height Weight BMI Blood Pressure 70 in 270 lbs 38.88 kg/m2 122/73 mm[Hg] 05/17/2019 Height Weight BMI Blood Pressure 70 in 259 lbs 37.30 kg/m2 132/83 mm[Hg] 03/22/2019 Height Weight BMI Blood Pressure 70 in 259 lbs 37.30 kg/m2 136/81 mm[Hg] 02/15/2019 Height Weight BMI Blood Pressure 70 in 263 lbs 37.87 kg/m2 102/70 mm[Hg] 10/26/2018 Height Weight BMI Blood Pressure 70 in 261 lbs 37.58 kg/m2 120/85 mm[Hg] 10/16/2018 Height Weight BMI Blood Pressure 71 in 263 lbs 36.81 kg/m2 125/85 mm[Hg] 07/31/2018 Height Weight BMI Blood Pressure 71 in 254 lbs 2.08 oz 35.57 kg/m2 126/86 mm[H g]
--- OUTSIDE RECORDS SUMMARY | 2020-07-24 08:35 | CCD ---
Author Author [facility] Organization 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 Active con firmed 89395184 Problem Cigarette nicotine dependence without complication F17.210 Active confirmed 55303283 Problem Total body pain R52 Active confirmed 2790 98673 Problem Myalgia M79.1 Active confirmed 27759537 Problem Chronic fatigue R53.82 Active confirmed 5270 2003 Problem Neuropathy G62.9 Active confirmed 596893214 Problem Chronic pain syndrome G89.4 Active confirmed 661510093 Problem History of cerebral palsy Z86.69 Active confirmed 851108990 ALLERGIES Allergen (clinical drug ingredient) Drug/Non Drug Allergy do cumented on EMR Reaction Allergy Type Onset Date Status chantix nightmares Non Drug Allergy Active Vicodin hives Drug Allergy Active omeprazole Omeprazole(NDC Code:[address]-52) panic attacks Drug Say rgy Active Iodine(ND Code:72906-62251) Rash Drug Allergy Active ENCOUNTERS from 1990 to 2020-07-11 Encounter Location Date Provider Diagnosis [facility] [address] [place] [address] 12 Jun, 2020 Pipe Balderrama Excessive menstruati on N92.0 IMMUNIZATIONS No Information SOCIAL HISTORY Tobacco Use: Social History Observation Description Date Details (start date - stop date) Current Smoker Sex Assigned At : Social History Observation Description Sex Assigned At Unknown Language: Question Answer Notes Languages spoken: Montserratian Tobacco Use: Question Answer Notes Are you a: current smoker vape Patient counseled on the dangers of tobacco use and urged to quit: 02/01/2017 How many cigarettes a day do you smoke? 6-10 REASON FOR REFERRAL No Information VITAL SIGNS Weight 237.8 lbs Jun, Weight-kg 107.86 kg Jun, Height 69 in Jun, BMI 35.11 kg/m2 Jun, Blood pressure systolic 112 mm Hg Jun, Blood pressure diastolic 70 mm Hg Jun, MEDICATIONS Medication SIG (Take, Route, Frequency, Duration) Notes Start Da te End Date Status Aspirin 81 81 MG 1 tablet Orally Once a day Not-Taking May Have Active Sertraline HCl 100 MG 1 tablet Orally Once a day Not-Taking Ranitidine HCl 150 MG 1 capsule at bedtime Orally twice a day fo r 30 day(s) Nov, Not-Taking Carafate 1 GM 1 tablet on an empty stomach Orally Twice a day Not-Taking Ibuprofen 200 MG 1 tablet with food or milk as needed Ora lly Three times a day Active Gerty Carbonate 300 MG 1 capsule at bedtime Orally daily Active Tylenol Extra Strength 500 MG 1 tablet as needed Orally every 6 hrs Active Sulfamethoxazole-TMP DS 160-800 MG 1 tablet Orally Twice a day Not-Taking Tramadol HCl 50 MG 1 tablet as needed Orally every 6 hrs Not-Taking Tizanidine HCl 4 MG 1 tablet as needed Orally fo r spasms and pain before bedtime May repeat in 5 hrs MDD2 for 30 day(s) Oct, Not-Taking HydrOXYzine HCl 50 MG 1 tablet as needed Orally every 6 hrs as needed Not-Taking Zoloft 50 MG 1 tablet Orally Once a day Not-Taking Lamictal 25 MG 1 tablet Orally Activ e Sucralfate 1 GM 1 tablet at bedtime on an em pty stomach before meals Orally Twice a day Not-Taking Iron 325 (65 Fe) MG 1 tablet Orally Once a day Not-Taking Methylphenidate HCl ER 36 MG 1 tablet in the morning Orally Once a da y Not-Taking Risperidone 3 MG 1 tablet Orally twice daily Not-Taking Oxcarbazepine 300 MG as needed Orally 3 times a day as needed Not-Taking Lyrica 150 MG 1 capsule Orally twice a day Not-Taking Cymbalta 30 MG 1 capsule Orally Once a day Active Concerta 36 MG 1 tablet in the morning Orally Once a day Active Baclofen 10 MG 1 tablet as needed Orally Twice a day Active CloNIDine Active TraZODone HCl 50 MG 3 tablet at bedtime as needed Orally Once a day Active PROCEDURES No Information RESULTS No Results REASON FOR VISIT PRE OP SURG 07/24/20 MEDICAL (GENERAL) HISTORY Type Description Date Medical History Cerebral Palsy effecting rig ht arm and leg 9getting Botox injectiong by Dr. Velez) Medical History ADHD Medical History DEPRESSION Medical History BIPOLAR disorder Medical History MIGRAINES Medical History Smoker Medical History GERD with mild gastric inflammation on 2016 Medical History chronic pain Surgical History gallbladder 06/13 Surgical History EGD - mild gastric inflammation 07/2016 Surgical History tubal ligation 12/28/16 Surgical History right ankle reconstruction x 2 07/2017 Hospitalization History giving 07/11/10 Hospitalization History mental health hospitalization 012 Goals Section No Information Health Concerns No Information MEDICAL EQUIPMENT No Information MENTAL STATUS No Information FUNCTIONAL STATUS No Information ASSESSMENTS Encounter Date Diagnosis Assessment Notes Treatment Notes Treatm ent Clinical Notes Jun, Excessive menstruation (ICD-10 - N92.0) PLAN OF TREATMENT Next Appt Details Provider Name:Pipe Balderrama 2020-07-24 08:45:00 AM, [address] [place] [address], [phone], Provider Name:Pipe Balderrama 2020-08-11 11:40:00 AM, [address] [place] [address], [phone], Provider Name:Pipe Balderrama 2020-09-07 11:00:00 AM, [address] [place] [address], [phone], Insurance Providers Payer Name Payer Address Payer Phone Insured Name Patient Relati onship to Insured Coverage Start Date Coverage End Date [facility] [address] [facility] [id number] ISAAC AKHTAR self
--- OUTSIDE RECORDS SUMMARY | 2020-07-24 08:35 | CCD | Continuity of Care Document ---
Author Author Rose LOPEZ P.A.-C. Organization Unknown Address [address] [place] [address] Phone [phone] Care Team Providers Care Customer Service Administrator Name Role Phone Leoncio Johnston M.D. AUTM [phone] Narendra Haynes M.D. AUTM [phone] Problems Active Problems Provider Date Cerebral palsy Casi Wright M.D. Onset: 04/23/2019 Hemiparesis Casi Wright M.D. Onset: 04/23/2019 Paresthesia Casi Wright M.D. Onset: 04/23/2019 Headache Casi Wright M.D. Onset: 04/23/2019 Social History Type Date Description Comments Sex Unknown Tobacco Use Start: Unknown Patient is a current smoker, smo kes every day Allergies, Adverse Reactions, Alerts Active Allergies Reaction Severity Comments Date Iodine 04/23/2019 Medications Active Medications SIG Qnty Indications Ordering Provide r Date PT: Evaluate For Power Mobility Device CVA with spasti c hemiplegia, gait difficulty and foot drop ( i63.89, g80.2, r26.81, m21.371) Kelsie Wright M.D. 05/07/2020 Power Mobility Device cva i63.89, hemiplegic cereb ral palsy g80.2, low back pain m54.5, unsteady gait r26.81 1units Kelsie Wright M.D. Botox 200Unit Solution Rec inject 600 units into the right arm and right leg muscles for cerebral palsy and spasticity 3units Oliver Roman M.D. 08/06/2019 Xanax 0.5mg Tablets 1 tab 15 mins prior to the scan; may repeat 30 minutes later if still anxiuos 2tabs Kelsie Wright M.D. 05/03/2019 Lyrica 200mg Capsules Unknown History Medications PT: Evaluate And Treat neck and back pain M54.2 [place]iyahu sarika Wright M.D. 01/01/2020 - 04/07/2020 Immunizations Description No Information Available Vital Signs Date Vital Result Comment 04/07/2020 5:49am BP Systolic 110 mmHg BP Diastolic 80 mmHg Heart Rate 84 /min Respiratory Rate 20 /min Height 69 inches 5'9" Weight 240.00 lb BMI (Body Mass Index) 35.4 kg/m2 [place] Body Weight 145 lb 01/01/2020 6:36am BP Systolic 110 mmHg BP Diastolic 70 mmHg Heart Rate 76 /min Respiratory Rate 16 /min Results Description No Information Available Procedures Date Code Description Status 05/15/2020 77158 Chemodenervation Each Additional Extremity; 5 Or More Muscles Completed 05/15/2020 86825 Chemodenervation One Extremity; Five Or More Muscles Completed 02/15/2020 96632 MRI Spine Cervical W/O Contrast Completed 02/15/2020 19506 MRI Spine Cervical W/O Contrast Completed 02/14/2020 46014 Chemodenervation Each Additional Extremity; 5 Or More Muscles Completed 02/14/2020 22659 Chemodenervation One Extremity; Five Or More Muscles Completed Medical Devices Description No Information Available Encounters Type Date Location Provider Dx Diagnosis Office Visit 04/07/2020 11:45a Main office - [place] Patty cruz P.A.-C. 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 06/30/2020 I63.89 Other cerebral infarction Patty J . Jessica, P.A.-C. 06/30/2020 M54.81 Occipital neuralgia Patty JAngelina Alcaraz cruz, P.A.-C. 06/30/2020 M54.2 Cervicalgia Patty J. Jessica, P.A.-C. 06/30/2020 M54.5 Low back pain Patty JAngelina Trickey, P.A.-C. 06/30/2020 R26.81 Unsteadiness on feet Patty Newton lópezey, P.A.-C. 06/30/2020 M21.371 Foot drop, right foot Patty JAngelina Hickey ickey, P.A.-C. 05/15/2020 G81.11 Spastic hemiplegia affecting rig ht dominant side Oliver Roman M.D. 04/07/2020 I63.89 Other cerebral infarction Patty J Angelina Alcarazkey, P.A.-C. 04/07/2020 G80.2 Spastic hemiplegic cerebral pals y Patty Newton Alcarazkey, P.A.-C. 04/07/2020 M54.2 Cervicalgia Patty JAngelina Lopez, P.A.-C. 04/07/2020 M54.5 Low back pain Patty JAngelina Lopez, P.A.-C. 04/07/2020 M21.371 Foot drop, right foot Patty Newton Hickey ickey, P.A.-C. 04/07/2020 R26.81 Unsteadiness on feet Patty Newton Gonzalez ckey, P.A.-C. 04/02/2020 I63.89 Other cerebral infarction Patty J Angelina Trickey, P.A.-C. 04/02/2020 G80.2 Spastic hemiplegic cerebral pals y Patty J. Trickey, P.A.-C. 04/02/2020 M54.2 Cervicalgia Patty J. Trickey, P.A.-C. 04/02/2020 M54.5 Low back pain Patty JAngelina Lopez, P.A.-C. 04/02/2020 M54.81 Occipital neuralgia Patty Newton cruz, P.A.-C. 04/02/2020 M21.371 Foot drop, right foot Patty JAngelina chowdhury P.A.-C. 04/02/2020 R26.81 Unsteadiness on feet Patty becerril P.A.-C. 02/15/2020 M54.2 Cervicalgia Kelsie Kyle, M.D . 02/15/2020 M54.2 Cervicalgia MRI 02/15/2020 M79.602 Pain in left arm Kelsie Kyle, M. D. 02/15/2020 M79.602 Pain in left arm MRI 02/15/2020 R20.2 Paresthesia of skin Kelsie Kyle, M.D. 02/15/2020 R20.2 Paresthesia of skin MRI 02/14/2020 G81.11 Spastic hemiplegia affecting rig ht dominant side Oliver Roman M.D. 01/01/2020 G80.2 Spastic hemiplegic cerebral pals y Patty Lopez P.A.-C. 01/01/2020 M21.371 Foot drop, right foot Patty Newton chowdhury P.A.-C. 01/01/2020 I63.89 Other cerebral infarction Patty Lopez P.A.-C. 01/01/2020 R20.2 Paresthesia of skin Patty cruz, P.A.-C. 01/01/2020 M54.2 Cervicalgia Patty Lopez P.A.-C. 01/01/2020 M54.5 Low back pain Patty Lopez P.A.-C. 01/01/2020 M51.36 Other intervertebral disc degene ration, lumbar region Patty Lopez P.A.-C. 01/01/2020 R51 Headache Patty Lopez P.A.-C. 01/01/2020 M54.81 Occipital neuralgia Patty cruz, P.A.-C. Plan of Treatment No Information Available Functional Status Description No Information Available Mental Status Description No Information Available Referrals Refer to Dr Reason for Referral Status Appt Date Oliver Roman M.D. Created [facility] [address] [place] [address] [phone]
--- OUTSIDE RECORDS SUMMARY | 2020-07-24 08:35 | CCD | Continuity of Care Document ---
Author Author Rose LOPEZ P.A.-C. Organization Unknown Address [address] [place] [address] Phone [phone] Care Team Providers Care Transportation Engineering Technician Name Role Phone Leoncio Johnston M.D. AUTM [phone] Narendra Haynes M.D. AUTM [phone] Problems Active Problems Provider Date Cerebral palsy [...] And Treat neck and back pain M54.2 Sundu sarika Wright M.D. 01/01/2020 - 04/07/2020 Immunizations Description No Information Available Vital Signs Date Vital Result Comment 04/07/2020 5:49am BP Systolic 110 mmHg BP Diastolic 80 mmHg Heart Rate 84 /min Respiratory Rate 20 /min Height 69 inches 5'9" Weight 240.00 lb BMI (Body Mass Index) 35.4 kg/m2 [place] Body Weight 145 lb 01/01/2020 6:36am BP Systolic 110 mmHg BP Diastolic 70 mmHg Heart Rate 76 /min Respiratory Rate 16 /min Results Description No Information Available Procedures Date Code Description Status 05/15/2020 74903 Chemodenervation Each Additional Extremity; 5 Or More Muscles Completed 05/15/2020 86616 Chemodenervation One Extremity; Five Or More Muscles Completed 02/15/2020 63710 MRI Spine Cervical W/O Contrast Completed 02/15/2020 63002 MRI Spine Cervical W/O Contrast Completed 02/14/2020 99162 Chemodenervation Each Additional Extremity; 5 Or More Muscles Completed 02/14/2020 60875 Chemodenervation One Extremity; Five Or More Muscles Completed Medical Devices Description No Information Available Encounters Type Date Location Provider Dx Diagnosis Office Visit 06/30/2020 8:30a Main office - [place] Patty cruz P.A.-C. G81.11 Spastic hemiplegia affecting right domin ant side I63.89 Other cerebral infarction M54.81 Occipital neuralgia M54.2 Cervicalgia M54.5 Low back pain R26.81 Unsteadiness on feet M21.371 Foot drop, right foot Office Visit 04/07/2020 11:45a Main office - [place] Patty cruz P.A.-C. 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 Tric cruz, P.A.-C. G80.2 Spastic hemiplegic cerebral palsy M21.371 Foot drop, right foot I63.89 Other cerebral infarction R20.2 Paresthesia of skin M54.2 Cervicalgia M54.5 Low back pain M51.36 Other intervertebral disc de generation, lumbar region R51 Headache M54.81 Occipital neuralgia Assessments Date Code Description Provider 06/30/2020 G81.11 Spastic hemiplegia affecting rig ht dominant side Patty Lopez, P.A.-C. 06/30/2020 I63.89 Other cerebral infarction Patty Eyal Lopez, P.A.-C. 06/30/2020 M54.81 Occipital neuralgia Patty cruz, P.A.-C. 06/30/2020 M54.2 Cervicalgia Patty Lopez, P.A.-C. 06/30/2020 M54.5 Low back pain Patty Lopez, P.A.-C. 06/30/2020 R26.81 Unsteadiness on feet Patty Newton becerril, P.A.-C. 06/30/2020 M21.371 Foot drop, right foot Patty Newton chowdhury, P.A.-C. 05/15/2020 G81.11 Spastic hemiplegia affecting rig ht dominant side Oliver Roman M.D. 04/07/2020 I63.89 Other cerebral infarction Patty Lopez, P.A.-C. 04/07/2020 G80.2 Spastic hemiplegic cerebral pals y Patty Lopez, P.A.-C. 04/07/2020 M54.2 Cervicalgia Patty Lopez, P.A.-C. 04/07/2020 M54.5 Low back pain Patty Lopez, P.A.-C. 04/07/2020 M21.371 Foot drop, right foot Patty Newton chowdhury, P.A.-C. 04/07/2020 R26.81 Unsteadiness on feet Patty becerril, P.A.-C. 04/02/2020 I63.89 Other cerebral infarction Patty Lopez, P.A.-C. 04/02/2020 G80.2 Spastic hemiplegic cerebral pals y Patty Lopez, P.A.-C. 04/02/2020 M54.2 Cervicalgia Patty Lopez, P.A.-C. 04/02/2020 M54.5 Low back pain Patty Lopez, P.A.-C. 04/02/2020 M54.81 Occipital neuralgia Patty cruz, P.A.-C. 04/02/2020 M21.371 Foot drop, right foot Patty JAngelina chowdhury, P.A.-C. 04/02/2020 R26.81 Unsteadiness on feet Patty becerril, P.A.-C. 02/15/2020 M54.2 Cervicalgia Kelsie Kyle, M.D . 02/15/2020 M54.2 Cervicalgia MRI 02/15/2020 M79.602 Pain in left arm Kelsie Kyle, M. D. 02/15/2020 M79.602 Pain in left arm MRI 02/15/2020 R20.2 Paresthesia of skin Kelsie Kyle, M.D. 02/15/2020 R20.2 Paresthesia of skin MRI 02/14/2020 G81.11 Spastic hemiplegia affecting rig ht dominant side Oliver Roman M.D. 01/01/2020 G80.2 Spastic hemiplegic cerebral pals y Patty Lopez, P.A.-C. 01/01/2020 M21.371 Foot drop, right foot Patty Newton chowdhury, P.A.-C. 01/01/2020 I63.89 Other cerebral infarction Patty Lopez, P.A.-C. 01/01/2020 R20.2 Paresthesia of skin Patty cruz, P.A.-C. 01/01/2020 M54.2 Cervicalgia Patty Lopez, P.A.-C. 01/01/2020 M54.5 Low back pain Patty Lopez, P.A.-C. 01/01/2020 M51.36 Other intervertebral disc degene ration, lumbar region Patty Lopez, P.A.-C. 01/01/2020 R51 Headache Patty Lopez P.A.-C. 01/01/2020 M54.81 Occipital neuralgia Patty cruz P.A.-C. Plan of Treatment 06/30/2020 - Patty Lopez P.A.-C.* G81.11 Spastic hemiplegia affecting right dominant side* Comments:* Continue Botox injections and baclofen. 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 * M54.81 Occipital neuralgia* Comments:* Consider nerve blocks. * M54.2 Cervicalgia* Comments:* Follow up with Dr Saucedo. * M54.5 Low back pain* Comments:* Follow up with Dr Saucedo. * R26.81 Unsteadiness on feet* Comments:* She is awaiting her PT evaluation for her power chair. * M21.371 Foot drop, right foot* Comments:* She no longer uses an AFO. * Follow up:* 3 months Functional Status Description No Information Available Mental Status Description No Information Available Referrals Refer to Reason for Referral Status Appt Date Kelsie Wright M.D. Created [facility] [address] [place] [address] [phone] Oliver Roman M.D. Created [facility] [address] [place] [address] [phone]
--- OUTSIDE RECORDS SUMMARY | 2020-07-24 08:36 | CCD | Continuity of Care Document ---
Author Author Rose ROMAN M.D. Organization Unknown Address [address] [place] [address] Phone [phone] Care Team Providers Care Survey Cad Technician Name Role Phone Leoncio Johnston M.D. AUTM [phone] Narendra Haynes M.D. AUTM [phone] Problems Active Problems Provider Date Cerebral palsy [...] lb BMI (Body Mass Index) 35.4 kg/m2 [place] Body Weight 145 lb 01/01/2020 6:36am BP Systolic 110 mmHg BP Diastolic 70 mmHg Heart Rate 76 /min Respiratory Rate 16 /min Results Description No Information Available Procedures Date Code Description Status 02/15/2020 82410 MRI Spine Cervical W/O Contrast Completed 02/15/2020 57608 MRI Spine Cervical W/O Contrast Completed 02/14/2020 96706 Chemodenervation Each Additional Extremity; 5 Or More Muscles Completed 02/14/2020 73826 Chemodenervation One Extremity; Five Or More Muscles Completed 11/15/2019 20036 Chemodenervation Each Additional Extremity; 5 Or More Muscles Completed 11/15/2019 14661 Chemodenervation One Extremity; Five Or More Muscles Completed Medical Devices Description No Information Available Encounters Type Date Location Provider Dx Diagnosis Office Visit 04/07/2020 11:45a Main office - [place] Carissa García.A.-C. 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 G80.2 Spastic hemiplegic cerebral palsy M21.371 Foot drop, right foot I63.89 Other cerebral infarction R20.2 Paresthesia of skin M54.2 Cervicalgia M54.5 Low back pain M51.36 Other intervertebral disc de generation, lumbar region R51 Headache M54.81 Occipital neuralgia Assessments Date Code Description Provider 04/07/2020 I63.89 Other cerebral infarction Rakel JuniorA.-C. 04/07/2020 G80.2 Spastic hemiplegic cerebral pals y Patty Newton Lopez, P.A.-C. 04/07/2020 M54.2 Cervicalgia Patty Newton Alcarazkey, P.A.-C. 04/07/2020 M54.5 Low back pain Patty Newton Lopez, P.A.-C. 04/07/2020 M21.371 Foot drop, right foot Patty EyalAngelina Hickey ickey, P.A.-C. 04/07/2020 R26.81 Unsteadiness on feet Patty Newton becerril, P.A.-C. 04/02/2020 I63.89 Other cerebral infarction Patty Lopez, P.A.-C. 04/02/2020 G80.2 Spastic hemiplegic cerebral pals y Patty Lopez, P.A.-C. 04/02/2020 M54.2 Cervicalgia Patty Netwon Lopez, P.A.-C. 04/02/2020 M54.5 Low back pain Patty EyalAngelina Trickey, P.A.-C. 04/02/2020 M54.81 Occipital neuralgia Patty Newton Tric cruz, P.A.-C. 04/02/2020 M21.371 Foot drop, right foot Patty EyalAngelina Hickey ickey, P.A.-C. 04/02/2020 R26.81 Unsteadiness on feet Patty [...] 01/01/2020 M21.371 Foot drop, right foot Patty chowdhury P.A.-C. 01/01/2020 I63.89 Other cerebral infarction Patty Lopez P.A.-C. 01/01/2020 R20.2 Paresthesia of skin Patty cruz, P.A.-C. 01/01/2020 M54.2 Cervicalgia Patty Lopez, P.A.-C. 01/01/2020 M54.5 Low back pain Patty Lopez, P.A.-C. 01/01/2020 M51.36 Other intervertebral disc degene ration, lumbar region Patty Lopez, P.A.-C. 01/01/2020 R51 Headache Patty Lopez, P.A.-C. 01/01/2020 M54.81 Occipital neuralgia Patty cruz P.A.-C. 11/15/2019 G81.11 Spastic hemiplegia affecting rig ht dominant side Oliver Roman M.D. 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 Order for power mobility device given. * M54.2 Cervicalgia* Comments:* Follow up with Dr Saucedo. She did not go to PT. * M54.5 Low back pain* Comments:* Follow up with Dr Saucedo. * M21.371 Foot drop, right foot* Comments:* She no longer uses an AFO. * R26.81 Unsteadiness on feet* Comments:* Order for power chair given. * Follow up:* 3 months Functional Status Description No Information Available Mental Status Description No Information Available Referrals Refer to Reason for Referral Status Appt Oliver Roman M.D. Created [facility] [address] [place] [address] [phone]
--- OUTSIDE RECORDS SUMMARY | 2020-07-24 08:36 | CCD ---
Author Author [facility] Organization [facility] Address Unknown Phone Unavailable Care Team Providers Care Extract Mixer Name Role Phone [place] Pipe Unavailable PROBLEMS Type Condition ICD9-CM Code MXH07-AF Code Onset Dates Condition S tatus SNOMED Code Notes Problem Other chronic pain G89.29 Active 98940743 Problem Spastic hemiplegic cerebral palsy G80.2 Active 44311796 Problem Cigarette nicotine dependence without complication F17.210 Active 66616111 Problem Total body pain R52 Active 548850809 Problem Myalgia M79.1 Active 96288751 Problem Chronic fatigue R53.82 Active 08988248 Problem Neuropathy G62.9 Active 373793407 Problem Chronic pain syndrome G89.4 Active 881178151 Problem History of cerebral palsy Z86.69 Active 795158 007 ALLERGIES Allergen (clinical drug ingredient) Drug/Non Drug Allergy do cumented on EMR Reaction Allergy Type Onset Date Status chantix nightmares Non Drug Allergy Active Vicodin hives Drug Allergy Active omeprazole Omeprazole(NDC Code:[address]-51) panic attacks Drug Say rgy Active Iodine(ND Code:70415-20986) Rash Drug Allergy Active ENCOUNTERS from 1989 to 2020-06-21 Encounter Location Date Provider Diagnosis [facility] [address] [place] [address] May, Pipe Balderrama IMMUNIZATIONS No Information SOCIAL HISTORY Tobacco Use: Social History Observation Description Date Details (start date - stop date) Current Smoker Sex Assigned At : Social History Observation Description Sex Assigned At Unknown Language: Question Answer Notes Languages spoken: Georgian Tobacco Use: Question Answer Notes Are you a: current smoker vape Patient counseled on the dangers of tobacco use and urged to quit: 02/01/2017 How many cigarettes a day do you smoke? 6-10 REASON FOR REFERRAL No Information VITAL SIGNS No information MEDICATIONS Medication SIG (Take, Route, Frequency, Duration) Notes Start Da te End Date Status Ibuprofen 200 MG 1 tablet with food or milk as needed Ora lly Three times a day Active Tramadol HCl 50 MG 1 tablet as needed Orally every 6 hrs Not-Taking Cymbalta 30 MG 1 capsule Orally Once a day Active Zoloft 50 MG 1 tablet Orally Once a day Not-Taking Tizanidine HCl 4 MG 1 tablet as needed Orally fo r spasms and pain before bedtime May repeat in 5 hrs MDD2 for 30 day(s) Oct, Not-Taking Sulfamethoxazole-TMP DS 160-800 MG 1 tablet Orally Twice a day Not-Taking [place] Carbonate 300 MG 1 capsule at bedtime Orally daily Active CloNIDine Active May Have Active Sertraline HCl 100 MG 1 tablet Orally Once a day Not-Taking Sucralfate 1 GM 1 tablet at bedtime on an em pty stomach before meals Orally Twice a day Not-Taking Methylphenidate HCl ER 36 MG 1 tablet in the morning Orally Once a da y Active Carafate 1 GM 1 tablet on an empty stomach Orally Twice a day Not-Taking Aspirin 81 81 MG 1 tablet Orally Once a day Not-Taking Iron 325 (65 Fe) MG 1 tablet Orally Once a day Not-Taking Baclofen 10 MG 1 tablet as needed Orally Twice a day Active HydrOXYzine HCl 50 MG 1 tablet as needed Orally every 6 hrs as needed Not-Taking Risperidone 3 MG 1 tablet Orally twice daily Not-Taking Ranitidine HCl 150 MG 1 capsule at bedtime Orally twice a day fo r 30 day(s) Nov, Not-Taking Oxcarbazepine 300 MG as needed Orally 3 times a day as needed Not-Taking Tylenol Extra Strength 500 MG 1 tablet as needed Orally every 6 hrs Active TraZODone HCl 50 MG 3 tablet at bedtime as needed Orally Once a day Active Lyrica 150 MG 1 capsule Orally twice a day Not-Taking PROCEDURES No Information RESULTS No Results REASON FOR VISIT AUTHORIZATION MEDICAL (GENERAL) HISTORY Type Description Date Medical History Cerebral Palsy effecting rig ht arm and leg 9getting Botox injectiong by Dr. Velez) Medical History ADHD Medical History DEPRESSION Medical History BIPOLAR disorder Medical History MIGRAINES Medical History Smoker Medical History GERD with mild gastric inflammation on E 2016 Medical History chronic pain Surgical History gallbladder 06/13 Surgical History EGD - mild gastric inflammation 07/2016 Surgical History tubal ligation 12/28/16 Surgical History right ankle reconstruction x 2 07/2017 Hospitalization History giving 07/11/10 Hospitalization History mental health hospitalization 012 Goals Section No Information Health Concerns No Information MEDICAL EQUIPMENT No Information MENTAL STATUS No Information FUNCTIONAL STATUS No Information ASSESSMENTS No Information PLAN OF TREATMENT Next Appt Details Provider Name:Pipe Balderrama 2020-07-10 02:20:00 PM, [address] [place] [address], [phone], Provider Name:Pipe Balderrama 2020-07-24 07:30:00 AM, [address] [place] [address], [phone], Provider Name:Pipe Balderrama 2020-08-11 11:40:00 AM, [address] [place] [address], [phone], Provider Name:Pipe Balderrama 2020-09-07 11:00:00 AM, [address] [place] [address], [phone], Insurance Providers Payer Name Payer Address Payer Phone Insured Name Patient Relati onship to Insured Coverage Start Date Coverage End Date FORMERLY [facility] [employer] [facility] [place] [address] [facility] [phone] ISAAC AKHTAR self
--- OUTSIDE RECORDS SUMMARY | 2020-07-24 08:36 | CCD ---
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 Active 86653284 Problem Cigarette nicotine dependence without complication F17.210 Active 41474101 Problem Total body pain R52 Active 566619513 Problem Myalgia M79.1 Active 56604256 Problem Chronic fatigue R53.82 Active 96915153 Problem Neuropathy G62.9 Active 123627244 Problem Chronic pain syndrome G89.4 Active 571936494 Problem History of cerebral palsy Z86.69 Active 720828 007 ALLERGIES Allergen (clinical drug ingredient) Drug/Non Drug Allergy do cumented on EMR Reaction Allergy Type Onset Date Status chantix nightmares Non Drug Allergy Active Vicodin hives Drug Allergy Active omeprazole Omeprazole(NDC Code:[address]-52) panic attacks Drug Say rgy Active Iodine(ND Code:64796-98673) Rash Drug Allergy Active ENCOUNTERS from 1989 to 2020-06-20 Encounter Location Date Provider Diagnosis [facility] [address] [place] [address] May, Pipe Balderrama Encounter for annual routine gynecological examination Z01.419 and STD exposure Z20.2 IMMUNIZATIONS No Information SOCIAL HISTORY Tobacco Use: Social History Observation Description Date Details (start date - stop date) Current Smoker Sex Assigned At : Social History Observation Description Sex Assigned At Unknown Language: Question Answer Notes Languages spoken: Irish Tobacco Use: Question Answer Notes Are you a: current smoker vape Patient counseled on the dangers of tobacco use and urged to quit: 02/01/2017 How many cigarettes a day do you smoke? 6-10 REASON FOR REFERRAL No Information VITAL SIGNS Weight 239 lbs May, Height 69 in May, BMI 35.29 kg/m2 May, Blood pressure systolic 118 mm Hg May, Blood pressure diastolic 78 mm Hg May, MEDICATIONS Medication SIG (Take, Route, Frequency, Duration) [...] 1 tablet Orally Twice a day Not-Taking D[place]ott Carbonate 300 MG 1 capsule at bedtime [...] a day Not-Taking PROCEDURES No Information RESULTS REASON FOR VISIT annual MEDICAL (GENERAL) HISTORY Type Description Date Medical [...] Notes Treatment Notes Treatm ent Clinical Notes May, Encounter for annual routine gynecological examination (ICD-10 - Z01.419) May, STD exposure (ICD-10 - Z20.2) PLAN OF TREATMENT Next Appt Details Provider Name:Pipe Balderrama 2020-07-10 02:20:00 PM, [address] [place] [address], [phone], Provider Name:Pipe Balderrama 2020-07-24 07:30:00 AM, [address] [place] [address], [phone], Provider Name:Pipe Balderrama 2020-08-11 11:40:00 AM, [address] [place] [address], [phone], Provider Name:Pipe Balderrama 2020-09-07 11:00:00 AM, [address] [place] [address], [phone], Insurance Providers Payer Name Payer Address Payer Phone Insured Name Patient Relati onship to Insured Coverage Start Date Coverage End Date [facility] [employer] [facility] [place] [address] [facility] [address] ISAAC AKHTAR self
--- OUTSIDE RECORDS SUMMARY | 2020-07-24 08:36 | CCD ---
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 Active 82807842 Problem Cigarette nicotine dependence without complication F17.210 Active 58798237 Problem Total body pain R52 Active 579194125 Problem Myalgia M79.1 Active 78006657 Problem Chronic fatigue R53.82 Active 05873047 Problem Neuropathy G62.9 Active 749878239 Problem Chronic pain syndrome G89.4 Active 963626211 Problem History of cerebral palsy Z86.69 Active 350924 007 ALLERGIES Allergen (clinical drug ingredient) Drug/Non Drug Allergy do cumented on EMR Reaction Allergy Type Onset Date Status chantix nightmares Non Drug Allergy Active Vicodin hives Drug Allergy Active omeprazole Omeprazole(NDC Code:[address]-72) panic attacks Drug Say rgy Active Iodine(ND Code:04619-39768) Rash Drug Allergy Active ENCOUNTERS from 1989 to 2020-06-20 Encounter Location Date Provider Diagnosis [facility] [address] [place] [address] May, Pipe Balderrama IMMUNIZATIONS No Information SOCIAL HISTORY Tobacco Use: Social History Observation Description Date Details (start date - stop date) Current Smoker Sex Assigned At : Social History Observation Description Sex Assigned At Unknown Language: Question Answer Notes Languages spoken: Occitan Tobacco Use: Question Answer Notes Are you [...] 1 tablet Orally Twice a day Not-Taking Tony Carbonate 300 MG 1 capsule at bedtime [...] Information RESULTS No Results REASON FOR VISIT Hysterectomy MEDICAL (GENERAL) HISTORY Type Description Date Medical [...] Details Provider Name:Pipe Balderrama 2020-07-10 02:20:00 PM, [address] [place] [address], [phone], Provider Name:Pipe Balderrama 2020-07-24 07:30:00 AM, [address] [place] [address], [phone], Provider Name:Pipe Balderrama 2020-08-11 11:40:00 AM, [address] [place] [address], [phone], Provider Name:Pipe Balderrama 2020-09-07 11:00:00 AM, [address] [place] [address], [phone], Insurance Providers Payer Name Payer Address Payer Phone Insured Name Patient Relati onship to Insured Coverage Start Date Coverage End Date [facility] [employer] [facility] [place] [address] [facility] [id number] ISAAC AKHTAR self
--- OUTSIDE RECORDS SUMMARY | 2020-07-24 08:36 | CCD | Continuity of Care Document ---
Author Author Rose ROMAN M.D. Organization Unknown Address [address] [place] [address] Phone [phone] Care Team Providers Care Agricultural Research Technologist Name Role Phone Leoncio Johnston M.D. AUTM [phone] Narendra Haynes M.D. AUTM [phone] Problems Active Problems Provider Date Cerebral palsy [...] lb BMI (Body Mass Index) 35.4 kg/m2 [place] Body Weight 145 lb 01/01/2020 6:36am BP Systolic 110 mmHg BP Diastolic 70 mmHg Heart Rate 76 /min Respiratory Rate 16 /min Results Description No Information Available Procedures Date Code Description Status 05/15/2020 32281 Chemodenervation Each Additional Extremity; 5 Or More Muscles Completed 05/15/2020 17259 Chemodenervation One Extremity; Five Or More Muscles Completed 02/15/2020 37150 MRI Spine Cervical W/O Contrast Completed 02/15/2020 98802 MRI Spine Cervical W/O Contrast Completed 02/14/2020 56002 Chemodenervation Each Additional Extremity; 5 Or More Muscles Completed 02/14/2020 70548 Chemodenervation One Extremity; Five Or More Muscles Completed Medical Devices Description No Information Available Encounters Type Date Location Provider Dx Diagnosis Office Visit 04/07/2020 11:45a Main office - [place] Patty cruz, P.A.-C. I63.89 Other cerebral infarction G80.2 Spastic hemiplegic cerebral palsy M54.2 Cervicalgia M54.5 Low back pain M21.371 Foot drop, right foot R26.81 Unsteadiness on feet Office Visit 01/01/2020 8:00a Main office - [place] Patty cruz, P.A.-C. G80.2 Spastic hemiplegic cerebral palsy M21.371 Foot drop, right foot I63.89 Other cerebral infarction R20.2 Paresthesia of skin M54.2 Cervicalgia M54.5 Low back pain M51.36 Other intervertebral disc de generation, lumbar region R51 Headache M54.81 Occipital neuralgia Assessments Date Code Description Provider 05/15/2020 G81.11 Spastic hemiplegia affecting rig ht dominant side Oliver Roman M.D. 04/07/2020 I63.89 Other cerebral infarction Patty J Angelina Alcarazkey, P.A.-C. 04/07/2020 G80.2 Spastic hemiplegic cerebral pals y Patty J. Trickey, P.A.-C. 04/07/2020 M54.2 Cervicalgia Patty J. Trickey, P.A.-C. 04/07/2020 M54.5 Low back pain Patty J. Trickey, P.A.-C. 04/07/2020 M21.371 Foot drop, right foot Patty J. Tr ickey, P.A.-C. 04/07/2020 R26.81 Unsteadiness on feet Patty Newton lópezey, P.A.-C. 04/02/2020 I63.89 Other cerebral infarction Patty J Angelina Trickey, P.A.-C. 04/02/2020 G80.2 Spastic hemiplegic cerebral pals y Patty J. Trickey, P.A.-C. 04/02/2020 M54.2 Cervicalgia Patty J. Trickey, P.A.-C. 04/02/2020 M54.5 Low back pain Patty J. Trickey, P.A.-C. 04/02/2020 M54.81 Occipital neuralgia Patty JAngelina Tric cruz, P.A.-C. 04/02/2020 M21.371 Foot drop, right foot Patty JAngelina Tr ickey, P.A.-C. 04/02/2020 R26.81 Unsteadiness on feet Patty Newton becerril, P.A.-C. 02/15/2020 M54.2 Cervicalgia Kelsie Kyle, [...] P.A.-C. 01/01/2020 R20.2 Paresthesia of skin Patty cruz P.A.-C. 01/01/2020 M54.2 Cervicalgia Patty Lopez, P.A.-C. 01/01/2020 M54.5 Low back pain Patty Lopez P.A.-C. 01/01/2020 M51.36 Other intervertebral disc degene ration, lumbar region Patty Lopez P.A.-C. 01/01/2020 R51 Headache Patty Lopez P.A.-C. 01/01/2020 M54.81 Occipital neuralgia Patty cruz, P.A.-C. Plan of Treatment Future Appointment(s):* 07/08/2020 11:30 am - Carissa Garcia.A.-CAngelina at Main office [facility] 04/07/2020 - Carissa Garcia.A.-C.* I63.89 Other cerebral infarction* Comments:* Old left [...] to Reason for Referral Status Appt Oliver Sanchez M.D. Created [facility] [address] [place] [address] [phone]
--- OUTSIDE RECORDS SUMMARY | 2020-07-24 08:36 | CCD ---
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 Name Role Phone Andrés Haynes MD Unavailable Unavailable Andrés Haynes MD Unavailable Unavailable Andrés Haynes MD Unavailable Unavailable Andrés Haynes MD Unavailable Unavailable Andrés Haynes MD Unavailable Unavailable Andrés Haynes MD Unavailable Unavailable Andrés Haynes MD Unavailable Unavailable Andrés Haynes MD Unavailable Unavailable Andrés Haynes MD Unavailable Unavailable Andrés Haynes MD Unavailable Unavailable Andrés Haynes MD Unavailable Unavailable Andrés Haynes MD Unavailable Unavailable Andrés Haynes MD Unavailable Unavailable Andrés Haynes MD Unavailable Unavailable Andrés Haynes MD Unavailable Unavailable Andrés Haynes MD Unavailable Unavailable Andrés Haynes MD Unavailable Unavailable nAdrés Haynes MD Unavailable Unavailable Andrés Haynes MD Unavailable Unavailable Andrés Haynes MD Unavailable Unavailable Andrés Hayens MD Unavailable Unavailable Andrés Haynes MD Unavailable Unavailable Andrés Haynes MD Unavailable Unavailable Andrés Haynes MD Unavailable Unavailable Andrés Haynes MD Unavailable Unavailable Andrés Haynes MD Unavailable Unavailable Andrés Haynes MD Unavailable Unavailable Andrés Haynes MD Unavailable Unavailable Andrés Haynes MD Unavailable Unavailable Andrés Haynes MD Unavailable Unavailable Andrés Haynes MD Unavailable Unavailable nAdrés Haynes MD Unavailable Unavailable Andrés Haynes MD Unavailable Unavailable Andrés Haynes MD Unavailable Unavailable Andrés Haynes MD Unavailable Unavailable Andrés Haynes MD Unavailable Unavailable Andrés Haynes MD Unavailable Unavailable Andrés Haynes MD Unavailable Unavailable Andrés Haynes MD Unavailable Unavailable Andrés Haynes MD Unavailable Unavailable Andrés Haynes MD Unavailable Unavailable Andrés Haynes MD Unavailable Unavailable Andrés Haynes MD Unavailable Unavailable Andrés Haynes MD Unavailable Unavailable Andrés Haynes MD Unavailable Unavailable Andrés Haynes MD Unavailable Unavailable Andrés Haynes MD Unavailable Unavailable Andrés Haynes MD Unavailable Unavailable Andrés Haynes MD Unavailable Unavailable Andrés Haynes MD Unavailable Unavailable Andrés Haynes MD Unavailable Unavailable Andrés Haynes MD Unavailable Unavailable Andrés Haynes MD Unavailable Unavailable Andrés Haynes MD Unavailable Unavailable Andrés Haynes MD Unavailable Unavailable Andrés Haynes MD Unavailable Unavailable Andrés Haynes MD Unavailable Unavailable Andrés Haynes MD Unavailable Unavailable Andrés Haynes MD Unavailable Unavailable Andrés Haynes MD Unavailable Unavailable Andrés Haynes MD Unavailable Unavailable Andrés Haynes MD Unavailable Unavailable Andrés Haynes MD Unavailable Unavailable Andrés Haynes MD Unavailable Unavailable Andrés Haynes MD Unavailable Unavailable Andrés Haynes MD Unavailable Unavailable Andrés Haynes MD Unavailable Unavailable Andrés Haynes MD Unavailable Unavailable Andrés Haynes MD Unavailable Unavailable Andrés Haynes MD Unavailable Unavailable Andrés Haynes MD Unavailable Unavailable Andrés Haynes MD Unavailable Unavailable Andrés Haynes MD Unavailable Unavailable Andrés Haynes MD Unavailable Unavailable Andrés Haynes MD Unavailable Unavailable Andrés Haynes MD Unavailable Unavailable Andrés Haynes MD Unavailable Unavailable Andrés aHynes MD Unavailable Unavailable Andrés Haynes MD Unavailable Unavailable Andrés Haynes MD Unavailable Unavailable Andrés Haynes MD Unavailable Unavailable Andrés Haynes MD Unavailable Unavailable Andrés Haynes MD Unavailable Unavailable Andrés Haynes MD Unavailable Unavailable Andrés Haynes MD Unavailable Unavailable Andrés aHynes MD Unavailable Unavailable Andrés Haynes MD Unavailable Unavailable Andrés Haynes MD Unavailable Unavailable Andrés Haynes MD Unavailable Unavailable Trickey, J Patty PA Unavailable Unavailable Trickey, J Patty PA Unavailable Unavailable Trickey, J Patty PA Unavailable Unavailable Trickey, J Patty PA Unavailable Unavailable Trickey, J Patty PA Unavailable Unavailable Trickey, J Patty PA Unavailable Unavailable Trickey, J Patty PA Unavailable Unavailable Trickey, J Patty PA Unavailable Unavailable Trickey, J Patty PA Unavailable Unavailable Trickey, J Patty PA Unavailable Unavailable Trickey, J Patty PA Unavailable Unavailable Trickey, J Patty PA Unavailable Unavailable Trickey, J Patty PA Unavailable Unavailable Trickey, J Patty PA Unavailable Unavailable Trickey, J Patty PA Unavailable Unavailable Trickey, J Patty PA Unavailable Unavailable Trickey, J Patty PA Unavailable Unavailable Trickey, J Patty PA Unavailable Unavailable Trickey, J Patty PA Unavailable Unavailable Trickey, J Patty PA Unavailable Unavailable Trickey, J Patty PA Unavailable Unavailable Trickey, J Patty PA Unavailable Unavailable Trickey, J Patty PA Unavailable Unavailable Trickey, J Patty PA Unavailable Unavailable Trickey, J Patty PA Unavailable Unavailable Trickey, J Patty PA Unavailable Unavailable Trickey, J Patty PA Unavailable Unavailable Trickey, J Patty PA Unavailable Unavailable Trickey, J Patty PA Unavailable Unavailable Trickey, J Patty PA Unavailable Unavailable Trickey, J Patty PA Unavailable Unavailable Trickey, J Patty PA Unavailable Unavailable Trickey, J Patty PA Unavailable Unavailable Trickey, J Patty PA Unavailable Unavailable Trickey, J Patty PA Unavailable Unavailable Trickey, J Patty PA Unavailable Unavailable Trickey, J Patty PA Unavailable Unavailable Trickey, J Patty PA Unavailable Unavailable Trickey, J Patty PA Unavailable Unavailable Trickey, J Patty PA Unavailable Unavailable Trickey, J Patty PA Unavailable Unavailable Trickey, J Patty PA Unavailable Unavailable Trickey, J Patty PA Unavailable Unavailable Trickey, J Patty PA Unavailable Unavailable Trickey, J Patty PA Unavailable Unavailable Trickey, J Patty PA Unavailable Unavailable Trickey, J Patty PA Unavailable Unavailable Trickey, J Patty PA Unavailable Unavailable Andrés Haynes MD Unavailable Unavailable Andrés Haynes MD Unavailable Unavailable Andrés Haynes MD Unavailable Unavailable Andrés Haynes MD Unavailable Unavailable Andrés Haynes MD Unavailable Unavailable Andrés Haynes MD Unavailable Unavailable Andrés Haynes MD Unavailable Unavailable Andrés Haynes MD Unavailable Unavailable Andrés Haynes MD Unavailable Unavailable Andrés Haynes MD Unavailable Unavailable Andrés Haynes MD Unavailable Unavailable Andrés Haynes MD Unavailable Unavailable Andrés Haynes MD Unavailable Unavailable Andrés Haynes MD Unavailable Unavailable Andrés Haynes MD Unavailable Unavailable Andrés Haynes MD Unavailable Unavailable Andrés Haynes MD Unavailable Unavailable Andrés Haynes MD Unavailable Unavailable Andrés Haynes MD Unavailable Unavailable Andrés Haynes MD Unavailable Unavailable Andrés Haynes MD Unavailable Unavailable Andrés Haynes MD Unavailable Unavailable Andrés Haynes MD Unavailable Unavailable Andrés Haynes MD Unavailable Unavailable Andrés Haynes MD Unavailable Unavailable Andrés Haynes MD Unavailable Unavailable Andrés Haynes MD Unavailable Unavailable Andrés Haynes MD Unavailable Unavailable Andrés Haynes MD Unavailable Unavailable Andrés Haynes MD Unavailable Unavailable Andrés Haynes MD Unavailable Unavailable Andrés Haynes MD Unavailable Unavailable Andrés Haynes MD Unavailable Unavailable Andrés Haynes MD Unavailable Unavailable Andrés Haynes MD Unavailable Unavailable Andrés Haynes MD Unavailable Unavailable Andrés Haynes MD Unavailable Unavailable Andrés Haynes MD Unavailable Unavailable Andrés Haynes MD Unavailable Unavailable Andrés Haynes MD Unavailable Unavailable Andrés Haynes MD Unavailable Unavailable Andrés Haynes MD Unavailable Unavailable Andrés Haynes MD Unavailable Unavailable Andrés Haynes MD Unavailable Unavailable Andrés Haynes MD Unavailable Unavailable Andrés Haynes MD Unavailable Unavailable Andrés Haynes MD Unavailable Unavailable Andrés Haynes MD Unavailable Unavailable Andrés Haynes MD Unavailable Unavailable Andrés Haynes MD Unavailable Unavailable Andrés Haynes MD Unavailable Unavailable Andrés Haynes MD Unavailable Unavailable Andrés Haynes MD Unavailable Unavailable Andrés Haynes MD Unavailable Unavailable Andrés Haynes MD Unavailable Unavailable Andrés Haynes MD Unavailable Unavailable Andrés Haynes MD Unavailable Unavailable Andrés Haynes MD Unavailable Unavailable Andrés Haynes MD Unavailable Unavailable Andrés Haynes MD Unavailable Unavailable Andrés Haynes MD Unavailable Unavailable Andrés Haynes MD Unavailable Unavailable Andrés Haynes MD Unavailable Unavailable Andrés Haynes MD Unavailable Unavailable Andrés Haynes MD Unavailable Unavailable Andrés Haynes MD Unavailable Unavailable Andrés Haynes MD Unavailable Unavailable Andrés Haynes MD Unavailable Unavailable Andrés Haynes MD Unavailable Unavailable Andrés Haynes MD Unavailable Unavailable Andrés Haynes MD Unavailable Unavailable Andrés Haynes MD Unavailable Unavailable Andrés Haynes MD Unavailable Unavailable Andrés Haynes MD Unavailable Unavailable Andrés Haynes MD Unavailable Unavailable Andrés Haynes MD Unavailable Unavailable Andrés Haynes MD Unavailable Unavailable Andrés Haynes MD Unavailable Unavailable Andrés Haynes MD Unavailable Unavailable Andrés Haynes MD Unavailable Unavailable Andrés Haynes MD Unavailable Unavailable Andrés Haynes MD Unavailable Unavailable Andrés Haynes MD Unavailable Unavailable Andrés Haynes MD Unavailable Unavailable Andrés Haynes MD Unavailable Unavailable Andrés Hanyes MD Unavailable Unavailable Andrés Haynes MD Unavailable Unavailable Andrés Haynes MD Unavailable Unavailable Andrés Haynes MD Unavailable Unavailable Rula STONER MD Unavailable Unavailable Rula STONER MD Unavailable Unavailable Rula STONER MD Unavailable Unavailable Rula STONER MD Unavailable Unavailable Rula STONER MD Unavailable Unavailable Rula STONER MD Unavailable Unavailable Rula STONER MD Unavailable Unavailable Rula STONER MD Unavailable Unavailable Rula STONER MD Unavailable Unavailable Rula STONER MD Unavailable Unavailable Rula STONER MD Unavailable Unavailable Rula STONER MD Unavailable Unavailable Rula STONER MD Unavailable Unavailable Rula STONER MD Unavailable Unavailable Rula STONER MD Unavailable Unavailable Rula STONER MD Unavailable Unavailable Rula STONER MD Unavailable Unavailable Rula STONER MD Unavailable Unavailable Rula STONER MD Unavailable Unavailable Rula STONER MD Unavailable Unavailable Rula STONER MD Unavailable Unavailable Rula STONER MD Unavailable Unavailable Rula STONER MD Unavailable Unavailable Rula STONER MD Unavailable Unavailable Rula STONER MD Unavailable Unavailable Rula STONER MD Unavailable Unavailable Rula STONER MD Unavailable Unavailable Rula STONER MD Unavailable Unavailable Rula STONER MD Unavailable Unavailable Rula STONER MD Unavailable Unavailable Rula STONER MD Unavailable Unavailable Rula STONER MD Unavailable Unavailable Rula STONER MD Unavailable Unavailable Rula STONER MD Unavailable Unavailable Rula STONER MD Unavailable Unavailable Rula STONER MD Unavailable Unavailable Rula STONER MD Unavailable Unavailable Rula STONER MD Unavailable Unavailable Rula STONER MD Unavailable Unavailable Rula STONER MD Unavailable Unavailable Rula STONER MD Unavailable Unavailable Rula STONER MD Unavailable Unavailable Rula STONER MD Unavailable Unavailable Rula STONER MD Unavailable Unavailable Rula STONER MD Unavailable Unavailable Rula STONER MD Unavailable Unavailable Rula STONER MD Unavailable Unavailable Rula STONER MD Unavailable Unavailable Rula STONER MD Unavailable Unavailable Rula STONER MD Unavailable Unavailable Rula STONER MD Unavailable Unavailable Rula STONER MD Unavailable Unavailable Rula STONER MD Unavailable Unavailable Rula STONER MD Unavailable Unavailable Rula STONER MD Unavailable Unavailable Rula STONER MD Unavailable Unavailable Rula STONER MD Unavailable Unavailable Rula STONER MD Unavailable Unavailable Rula STONER MD Unavailable Unavailable Rula STONER MD Unavailable Unavailable Rula STONER MD Unavailable Unavailable Rula STONER MD Unavailable Unavailable Rula STONER MD Unavailable Unavailable Rula STONER MD Unavailable Unavailable Rula STONER MD Unavailable Unavailable Rula STONER MD Unavailable Unavailable Rula STONER MD Unavailable Unavailable Rula STONER MD Unavailable Unavailable Rula STONER MD Unavailable Unavailable Rula STONER MD Unavailable Unavailable Rula STONER MD Unavailable Unavailable Rula STONER MD Unavailable Unavailable Rula STONER MD Unavailable Unavailable Rula STONER MD Unavailable Unavailable Rula STONER MD Unavailable Unavailable Rula STONER MD Unavailable Unavailable Rula STONER MD Unavailable Unavailable Rula STONER MD Unavailable Unavailable Rula STONER MD Unavailable Unavailable Rula STONER MD Unavailable Unavailable Rula STONER MD Unavailable Unavailable Rula STONER MD Unavailable Unavailable Rula STONER MD Unavailable Unavailable Garzon, Guero Unavailable Unavailable Garzon, Guero Unavailable Unavailable Garzon, Guero Unavailable Unavailable Garzon, Guero Unavailable Unavailable Garzon, Guero Unavailable Unavailable Garzon, Guero Unavailable Unavailable Garzon, Guero Unavailable Unavailable Garzon, Guero Unavailable Unavailable Garzon, Guero Unavailable Unavailable Garzon, Guero Unavailable Unavailable Garzon, Guero Unavailable Unavailable Garzon, Guero Unavailable Unavailable Garzon, Guero Unavailable Unavailable Garzon, Guero Unavailable Unavailable Garzon, Guero Unavailable Unavailable Garzon, Guero Unavailable Unavailable Garzon, Guero Unavailable Unavailable Garzon, Guero Unavailable Unavailable Garzon, Guero Unavailable Unavailable Garzno, Guero Unavailable Unavailable Garzon, Guero Unavailable Unavailable Garzon, Guero Unavailable Unavailable Garzon, Guero Unavailable Unavailable Garzon, Guero Unavailable Unavailable Garzon, Guero Unavailable Unavailable Garzon, Guero Unavailable Unavailable Garzon, Guero Unavailable Unavailable Garzon, Guero Unavailable Unavailable Garzon, Guero Unavailable Unavailable Garzon, Guero Unavailable Unavailable Garzon, Guero Unavailable Unavailable Garzon, Guero Unavailable Unavailable Garzon, Guero Unavailable Unavailable Garzon, Guero Unavailable Unavailable Garzon, Guero Unavailable Unavailable Garzon, Guero Unavailable Unavailable Garzon, Guero Unavailable Unavailable Garzon, Guero Unavailable Unavailable Garzon, Guero Unavailable Unavailable Garzon, Guero Unavailable Unavailable Garzon, Guero Unavailable Unavailable Garzon, Guero Unavailable Unavailable Garzon, Guero Unavailable Unavailable Garzon, Guero Unavailable Unavailable Re-disclosure Warning The records that you are about to access may contain information from federally-assisted alcohol or drug abuse programs. If such information is present, then the following federally mandated warning applies: This information has been disclosed to you from records protected by federal confidentiality rules (42 CFR part 2). The federal rules prohibit you from making any further disclosure of this information unless further disclosure is expressly permitted by the written consent of the person to whom it pertains or as otherwise permitted by 42 CFR part 2. A general authorization for the release of medical or other information is NOT sufficient for this purpose. The Federal rules restrict any use of the information to criminally investigate or prosecute any alcohol or drug abuse patient.The records that you are about to access may contain highly sensitive health information, the redisclosure of which is protected by Article 27-F of the [facility] Public Health law. If you continue you may have access to information: Regarding HIV / AIDS; Provided by facilities licensed or operated by the [facility] Office of Mental Health; or Provided by the [facility] Office for People With Developmental Disabilities. If such information is present, then the following [facility] mandated warning applies: This information has been disclosed to you from confidential records which are protected by state law. State law prohibits you from making any further disclosure of this information without the specific written consent of the person to whom it pertains, or as otherwise permitted by law. Any unauthorized further disclosure in violation of state law may result in a fine or fpc sentence or both. A general authorization for the release of medical or other information is NOT sufficient authorization for further disc losure. Family History Family Member Name Family Member Gender Family Member Status Date o f Status Description Data Source(s) Unknown Unknown Problem MEDENT ([facility], ) Encounters Encounter Providers Location Date Indications Data Source(s ) Narendra Haynes MD: [address] [place] [phone], Ph. Attender: Narendra Haynes MD [facility] Medical 07/20/2020 12:00:00 AM EST JR ([facility]) Office Visit, Est Pt., Level [address] PC [address] [place] [address] 07/10/2020 12:00:00 AM EST eCW1 ([facility]) Outpatient Attender: Patty SAUCEDO Main office - [facility] [place] n 06/30/2020 07:30:00 AM EST [facility] ([facility]) Unknown [address] [facility] [place] [id number] 06/19/2020 12:00:00 AM EST eCW1 ([facility]) Unknown [address] [facility] [id number] 06/12/2020 12:00:00 AM EST eCW1 ([facility]) Outpatient [address] [facility] [id number] 06/10/2020 12:00:00 AM EST eCW1 ([facility]) Outpatient Attender: Patty SAUCEDO Main [facility] [place] n 04/07/2020 10:45:00 AM EST MEDENT ([facility], ) Narendra Haynes MD: [address] [place] [phone], Ph. Attender: Narendra Haynes MD [facility] Medical 03/26/2020 12:00:00 AM EDT JR ([facility]) Narendra Haynes MD: [address] [place] [phone], Ph. Attender: Narendra Haynes MD [facility] Medical 03/24/2020 12:00:00 AM EDT JR ([facility]) Narendra Haynes MD: [address] [place] [phone], Ph. Attender: Narendra Haynes MD [facility] Medical 03/24/2020 12:00:00 AM EDT JR ([facility]) Outpatient Attender: Narendra Haynes MD FP 02/20/2020 12:32:00 PM EDT [facility] Outpatient Attender: Narendra Haynes MD FP 01/18/2020 12:02:19 AM EDT [facility] Outpatient Attender: Narendra Haynes MD FP 01/17/2020 05:09:01 PM EDT [facility] Outpatient Attender: Narendra Haynes MD FP 01/17/2020 04:14:00 PM EDT [facility] Outpatient Attender: Patty SAUCEDO Main office - [place] 01/01/2020 08:00:00 AM EDT MEDENT ([facility] ) Outpatient Attender: Narendra Haynes MD FP 12/31/2019 01:33:00 PM EDT [facility] Outpatient Attender: Narendra Haynes MD FP 12/10/2019 03:33:02 PM EDT [facility] Outpatient Attender: Narendra Haynes MD FP 11/20/2019 12:02:12 AM EDT [facility] Outpatient Attender: Narendra Haynes MD FP 11/19/2019 07:44:00 AM EDT [facility] Outpatient Attender: Narendra Haynes MD FP 11/18/2019 02:04:02 PM EDT [facility] Outpatient Attender: Narendra Haynes MD FP 11/18/2019 02:03:01 PM EDT [facility] Outpatient Attender: Narendra Haynes MD FP 11/18/2019 12:54:01 PM EDT [facility] Outpatient Attender: Narendra Haynes MD FP 11/18/2019 12:53:01 PM EDT [facility] Outpatient Attender: Narendra Haynes MD FP 11/18/2019 12:45:01 PM EDT [facility] Outpatient Attender: Narendra Haynes MD FP 10/24/2019 09:01:08 PM EDT [facility] Outpatient Attender: Narnedra Haynes MD FP 10/24/2019 10:04:00 AM EDT [facility] Outpatient Attender: ZUHAIR STONER MD FP 08/16/2019 10:24:00 A M EDT [facility] Outpatient Attender: Patty SAUCEDO Main office - [place] 07/05/2019 08:30:00 AM EST MEDENT ([facility]) Outpatient Attender: ZUHAIR STONER MD FP 07/04/2019 03:09:00 P M EST [facility] Outpatient Attender: ZUHAIR STONER MD FP 07/02/2019 09:01:09 P M EST [facility] Outpatient Attender: [facility] 05/28/2019 07:00:0 0 AM EST MEDENT ([facility]) Medications Medication Brand Name Start Date Product Form Dose Route Admi nistrative Instructions Pharmacy Instructions Status Indications Reaction Description Data Source(s) Sulfamethoxazole 800 MG / Trimethoprim 160 MG Oral Tab let 800-160 mg SULFAMETHOXAZOLE/TRIMETHOPRIM 05/30/2020 12:00:00 AM EST tablet 10 TAKE ONE TABLET BY MOUTH TWICE A DAY FOR 5 DAYS TAKE ONE TABLET BY MOUTH TWICE A DAY FOR 5 DAYS SOLD: 05/30/2020 [facility] PT: Evaluate For Power Mobility Device 05/07/2020 12:00:00 AM ES T active MEDENT ([facility]) 36 mg 04/03/2020 12:00:00 AM EST tablet extended release 24hr 30 TAKE ONE TABLET BY MOUTH EVERY MORNING MAXIMUM DAILY DOSE = 1 TABLET TAKE ONE TABLET BY MOUTH EVERY MORNING MAXIMUM DAILY DOSE = 1 TABLET SOLD: 04/04/2020 [facility] Power Mobility Device 04/02/2020 12:00:00 AM EST active MEDENT ([facility]) 50 mg 03/31/2020 12:00:00 AM EST tablet 60 TAKE 1-2 TABLETS BY MOUTH ONCE DAILY AT BEDTIME NEEDED TAKE 1-2 TABLETS BY MOUTH ONCE DAILY AT BEDTIME NEEDED SOLD: 04/04/2020 [facility] 30 mg 03/31/2020 12:00:00 AM EST capsule,delayed release (DR/EC) 30 TAKE ONE CAPSULE BY MOUTH EVERY DAY TAKE ONE CAPSULE BY MOUTH EVERY DAY SOLD: 04/04/2020 [facility] 30 mg 03/03/2020 12:00:00 AM EDT capsule,delayed release (DR/EC) 30 TAKE ONE CAPSULE BY MOUTH EVERY DAY TAKE ONE CAPSULE BY MOUTH EVERY DAY SOLD: 03/07/2020 [facility] 36 mg 03/02/2020 12:00:00 AM EDT tablet extended release 24hr 30 TAKE ONE TABLET BY MOUTH EVERY MORNING MAXIMUM DAILY DOSE = 1 TAKE ONE TABLET BY MOUTH EVERY MORNING MAXIMUM DAILY DOSE = 1 SOLD: 03/02/2020 [facility] 875-125 mg 02/27/2020 12:00:00 AM EDT tablet 20 TAKE ONE TABLET BY MOUTH TWICE A DAY FOR 10 DAYS TAKE ONE TABLET BY MOUTH TWICE A DAY FOR 10 DAYS SOLD: 02/28/2020 [facility] 1.5 mg 02/19/2020 12:00:00 AM EDT capsule 30 TAKE ONE CAPSULE BY MOUTH EVERY DAY TAKE ONE CAPSULE BY MOUTH EVERY DAY SOLD: 02/19/2020 [facility] 1.5 mg 02/19/2020 12:00:00 AM EDT capsule 30 TAKE ONE CAPSULE BY MOUTH EVERY DAY TAKE ONE CAPSULE BY MOUTH EVERY DAY SOLD: 03/19/2020 [facility] Clonidine Hydrochloride 0.1 MG Oral Tablet CLONIDINE HCL 02/15/2020 12:00:00 AM EDT tablet 60 TAKE ONE TABLET BY MOUTH TWI CE A DAY TAKE ONE TABLET BY MOUTH TWICE A DAY SOLD: 02/19/2020 [facility] Clonidine Hydrochloride 0.1 MG Oral Tablet CLONIDINE HCL 02/15/2020 12:00:00 AM EDT tablet 60 TAKE ONE TABLET BY MOUTH TWI CE A DAY TAKE ONE TABLET BY MOUTH TWICE A DAY SOLD: 03/14/2020 [facility] Alprazolam 0.5 MG Oral Tablet ALPRAZOLAM 02/12/2020 12:00:00 AM EDT ta blet 2 TAKE 1 TABLET BY MOUTH 15 MINUTES PRIOR TO THE SCAN,MAY REPEAT 30 MINUTES LATER IF STILL ANXIOUS MAXIMUM DAILY DOSE = 2 TABLETS TAKE 1 TABLET BY MOUTH 15 MINUTES PRIOR TO THE SCAN,MAY REPEAT 30 MINUTES LATER IF STILL ANXIOUS MAXIMUM DAILY DOSE = 2 TABLETS SOLD: 02/14/2020 [facility] 36 mg 01/28/2020 12:00:00 AM EDT tablet extended release 24hr 30 TAKE ONE TABLET BY MOUTH EVERY MORNING MAXIMUM DAILY DOSE = 1 TABLET TAKE ONE TABLET BY MOUTH EVERY MORNING MAXIMUM DAILY DOSE = 1 TABLET SOLD: 01/31/2020 [facility] 10 mg 01/23/2020 12:00:00 AM EDT tablet 120 TAKE ONE TABLET BY MOUTH FOUR TIMES A DAY MAXIMUM DAILY DOSE = 4 TAKE ONE TABLET BY MOUTH FOUR TIMES A DA Y MAXIMUM DAILY DOSE = 4 SOLD: 01/24/2020 [facility] Alprazolam 0.5 MG Oral Tablet ALPRAZOLAM 01/03/2020 12:00:00 AM EDT ta blet 2 TAKE ONE TABLET BY MOUTH 15MINUTES PRIOR TO SCAN MAY REPEAT 30 MINUTES LATER IF STILL ANXIOUS MAXIMUM DAILY DOSE = 2 TABLETS TAKE ONE TABLET BY MOUTH 15MINUTES PRIOR TO SCAN MAY REPEAT 30 MINUTES LATER IF STILL ANXIOUS MAXIMUM DAILY DOSE = 2 TABLETS SOLD: 01/07/2020 [facility] PT: Evaluate And Treat 01/01/2020 12:00:00 AM EDT completed [facility] ([facility], ) 75 mg 12/30/2019 12:00:00 AM EDT capsule 60 TAKE ONE CAPSULE BY MOUTH TWICE A DAY MAXIMUM DAILY DOSE = 2 TAKE ONE CAPSULE BY MOUTH TWICE A DAY MA XIMUM DAILY DOSE = 2 SOLD: 12/30/2019 [facility] 36 mg 12/30/2019 12:00:00 AM EDT tablet extended release 24hr 30 TAKE ONE TABLET BY MOUTH EVERY MORNING MAXIMUM DAILY DOSE = 1 TABLET TAKE ONE TABLET BY MOUTH EVERY MORNING MAXIMUM DAILY DOSE = 1 TABLET SOLD: 12/30/2019 [facility] Clonidine Hydrochloride 0.1 MG Oral Tablet CLONIDINE HCL 12/19/2019 12:00:00 AM EDT tablet 60 TAKE ONE TABLET BY MOUTH TWI CE A DAY TAKE ONE TABLET BY MOUTH TWICE A DAY SOLD: 01/19/2020 [facility] Clonidine Hydrochloride 0.1 MG Oral Tablet CLONIDINE HCL 12/19/2019 12:00:00 AM EDT tablet 60 TAKE ONE TABLET BY MOUTH TWI CE A DAY TAKE ONE TABLET BY MOUTH TWICE A DAY SOLD: 12/20/2019 [facility] 75 mg 12/16/2019 12:00:00 AM EDT capsule 45 TAKE ONE CAPSULE BY MOUTH THREE TIMES A DAY MAXIMUM DAILY DOSE = 3 TAKE ONE CAPSULE BY MOUTH THREE TIMES A DAY MAXIMUM DAILY DOSE = 3 SOLD: 12/17/2019 [facility] 36 mg 11/30/2019 12:00:00 AM EDT tablet extended release 24hr 30 TAKE ONE TABLET BY MOUTH EVERY DAY IN THE MORNING MAXIMUM DAILY DOSE = 1 TAKE ONE TABLET BY MOUTH EVERY DAY IN THE MORNING MAXIMUM DAILY DOSE = 1 SOLD: 12/01/2019 [facility] 100 mg 11/29/2019 12:00:00 AM EDT capsule 60 TAKE ONE CAPSULE BY MOUTH TWICE A DAY MAXIMUM DAILY DOSE = 2 TAKE ONE CAPSULE BY MOUTH TWICE A DAY MA XIMUM DAILY DOSE = 2 SOLD: 12/01/2019 [facility] 200 mg 11/22/2019 12:00:00 AM EDT capsule 60 TAKE ONE CAPSULE BY MOUTH TWICE A DAY MAXIMUM DAILY DOSE = 2 TAKE ONE CAPSULE BY MOUTH TWICE A DAY MA XIMUM DAILY DOSE = 2 SOLD: 11/22/2019 [facility] 50 mcg/actuation 11/19/2019 12:00:00 AM EDT spray,suspension 16 SPRAY 2 SPRAYS IN EACH NOSTRIL DAILY SPRAY 2 SPRAYS IN EACH NOSTRIL DAILY SOLD: 11/19/2019 [facility] 90 mcg/actuation 11/19/2019 12:00:00 AM EDT HFA aerosol inha ler 6 INHALE TWO PUFFS BY MOUTH EVERY 4 HOURS NEEDED, MAXIMUM DAILY DOSE = 8 PUFFS INHALE TWO PUFFS BY MOUTH EVERY 4 HOURS NEEDED, MAXIMUM DAILY DOSE = 8 PUFFS SOLD: 11/22/2019 [facility] Clonidine Hydrochloride 0.1 MG Oral Tablet CLONIDINE HCL 11/18/2019 12:00:00 AM EDT tablet 60 TAKE ONE TABLET BY MOUTH TWI CE A DAY TAKE ONE TABLET BY MOUTH TWICE A DAY SOLD: 11/19/2019 [facility] 36 mg 11/01/2019 12:00:00 AM EDT tablet extended release 24hr 30 TAKE ONE TABLET BY MOUTH EVERY MORNING MAXIMUM DAILY DOSE = 1 TAKE ONE TABLET BY MOUTH EVERY MORNING MAXIMUM DAILY DOSE = 1 SOLD: 11/02/2019 [facility] Clonidine Hydrochloride 0.1 MG Oral Tablet CLONIDINE HCL 10/28/2019 12:00:00 AM EDT tablet 30 TAKE ONE TABLET BY MOUTH TWI CE A DAY TAKE ONE TABLET BY MOUTH TWICE A DAY SOLD: 10/28/2019 [facility] 800-160 mg 10/14/2019 12:00:00 AM EDT tablet 20 TAKE ONE TABLET BY MOUTH TWICE A DAY FOR 10 DAYS TAKE ONE TABLET BY MOUTH TWICE A DAY FOR 10 DAYS SOLD: 10/14/2019 [facility] 50 mg 10/02/2019 12:00:00 AM EDT tablet 60 TAKE 1-2 TABLETS BY MOUTH AT BEDTIME NEEDED TAKE 1-2 TABLETS BY MOUTH AT BEDTIME NEEDED SOLD: 12/30/2019 [facility] 50 mg 10/02/2019 12:00:00 AM EDT tablet 60 TAKE 1-2 TABLETS BY MOUTH AT BEDTIME NEEDED TAKE 1-2 TABLETS BY MOUTH AT BEDTIME NEEDED SOLD: 10/29/2019 [facility] 50 mg 10/02/2019 12:00:00 AM EDT tablet 60 TAKE 1-2 TABLETS BY MOUTH AT BEDTIME NEEDED TAKE 1-2 TABLETS BY MOUTH AT BEDTIME NEEDED SOLD: 01/31/2020 [facility] 50 mg 10/02/2019 12:00:00 AM EDT tablet 60 TAKE 1-2 TABLETS BY MOUTH AT BEDTIME NEEDED TAKE 1-2 TABLETS BY MOUTH AT BEDTIME NEEDED SOLD: 10/04/2019 [facility] 50 mg 10/02/2019 12:00:00 AM EDT tablet 60 TAKE 1-2 TABLETS BY MOUTH AT BEDTIME NEEDED TAKE 1-2 TABLETS BY MOUTH AT BEDTIME NEEDED SOLD: 12/01/2019 [facility] 50 mg 10/02/2019 12:00:00 AM EDT tablet 60 TAKE 1-2 TABLETS BY MOUTH AT BEDTIME NEEDED TAKE 1-2 TABLETS BY MOUTH AT BEDTIME NEEDED SOLD: 03/02/2020 [facility] 2.5 mg 10/01/2019 12:00:00 AM EDT tablet, sublingual 60 PLACE 1 TABLET UNDER THE TONGUE TWO TIMES A DAY MAXIMUM DAILY DOSE = 2 PLACE 1 TABLET UNDER THE TONGUE TWO TIMES A DAY MAXIMUM DAILY DOSE = 2 SOLD: 10/01/2019 [facility] 36 mg 09/27/2019 12:00:00 AM EDT tablet extended release 24hr 30 TAKE ONE TABLET BY MOUTH EVERY DAY IN THE MORNING MAXIMUM DAILY DOSE = 1 TAKE ONE TABLET BY MOUTH EVERY DAY IN THE MORNING MAXIMUM DAILY DOSE = 1 SOLD: 09/28/2019 [facility] 800-160 mg 09/16/2019 12:00:00 AM EDT tablet 20 TAKE 1 TABLET BY MOUTH TWO TIMES A DAY FOR 10 DAYS TAKE 1 TABLET BY MOUTH TWO TIMES A DAY FOR 10 DAYS LADY [facility] 36 mg 08/29/2019 12:00:00 AM EDT tablet extended release 24hr 30 TAKE ONE TABLET BY MOUTH EVERY MORNING, MAXIMUM DAILY DOSE = 1 TAKE ONE TABLET BY MOUTH EVERY MORNING, MAXIMUM DAILY DOSE = 1 SOLD: 08/30/2019 [facility] 200 mg 08/24/2019 12:00:00 AM EDT capsule 90 TAKE ONE CAPSULE BY MOUTH THREE TIMES A DAY MAXIMUM DAILY DOSE = 3 CAPSULES TAKE ONE CAPSULE BY MOUTH THREE TIMES A DAY MAXIMUM DAILY DOSE = 3 CAPSULES SOLD: 09/23/2019 [facility] 200 mg 08/24/2019 12:00:00 AM EDT capsule 90 TAKE ONE CAPSULE BY MOUTH THREE TIMES A DAY MAXIMUM DAILY DOSE = 3 CAPSULES TAKE ONE CAPSULE BY MOUTH THREE TIMES A DAY MAXIMUM DAILY DOSE = 3 CAPSULES SOLD: 08/24/2019 [facility] 50 mg 08/23/2019 12:00:00 AM EDT tablet 60 TAKE ONE TO TWO TABLETS BY MOUTH AT BEDTIME NEEDED TAKE ONE TO TWO TABLETS BY MOUTH AT BEDTIME NEEDED SOLD: 08/24/2019 [facility] 36 mg 08/09/2019 12:00:00 AM EDT tablet extended release 24hr 30 TAKE ONE TABLET BY MOUTH EVERY MORNING, MAXIMUM DAILY DOSE = 1 TAKE ONE TABLET BY MOUTH EVERY MORNING, MAXIMUM DAILY DOSE = 1 SOLD: 08/09/2019 [facility] onabotulinumtoxinA 200 UNT/ML Injectable Solution [Botox] Sunday tox 08/06/2019 12:00:00 AM EDT active M [facility]ENT ([facility], ) 20 mg 07/30/2019 12:00:00 AM EST capsule,delayed release (DR/EC) 90 TAKE ONE CAPSULE BY MOUTH EVERY DAY TAKE ONE CAPSULE BY MOUTH EVERY DAY SOLD: 07/30/2019 [facility] 200 mg 07/27/2019 12:00:00 AM EST capsule 90 TAKE ONE CAPSULE BY MOUTH THREE TIMES A DAY MAXIMUM DAILY DOSE = 3 CAPSULES TAKE ONE CAPSULE BY MOUTH THREE TIMES A DAY MAXIMUM DAILY DOSE = 3 CAPSULES SOLD: 07/28/2019 [facility] 200 mg 07/27/2019 12:00:00 AM EST capsule 90 TAKE ONE CAPSULE BY MOUTH THREE TIMES A DAY MAXIMUM DAILY DOSE = 3 CAPSULES TAKE ONE CAPSULE BY MOUTH THREE TIMES A DAY MAXIMUM DAILY DOSE = 3 CAPSULES SOLD: 10/24/2019 [facility] 300 mg 07/23/2019 12:00:00 AM EST capsule 90 TAKE ONE CAPSULE BY MOUTH EVERY MORNING AND 2 EVERY EVENING TAKE ONE CAPSULE BY MOUTH EVERY MORNING AND 2 EVERY EVENING SOLD: 01/19/2020 [facility] 300 mg 07/23/2019 12:00:00 AM EST capsule 90 TAKE ONE CAPSULE BY MOUTH EVERY MORNING AND 2 EVERY EVENING TAKE ONE CAPSULE BY MOUTH EVERY MORNING AND 2 EVERY EVENING SOLD: 12/17/2019 [facility] 50 mg 07/23/2019 12:00:00 AM EST tablet 60 TAKE ONE TO TWO TABLETS AT BEDTIME NEEDED TAKE ONE TO TWO TABLETS AT BEDTIME NEEDED SOLD: 0 [facility] 300 mg 07/23/2019 12:00:00 AM EST capsule 90 TAKE ONE CAPSULE BY MOUTH EVERY MORNING AND 2 EVERY EVENING TAKE ONE CAPSULE BY MOUTH EVERY MORNING AND 2 EVERY EVENING SOLD: 07/28/2019 [facility] 300 mg 07/23/2019 12:00:00 AM EST capsule 90 TAKE ONE CAPSULE BY MOUTH EVERY MORNING AND 2 EVERY EVENING TAKE ONE CAPSULE BY MOUTH EVERY MORNING AND 2 EVERY EVENING SOLD: 10/29/2019 [facility] 300 mg 07/23/2019 12:00:00 AM EST capsule 90 TAKE ONE CAPSULE BY MOUTH EVERY MORNING AND 2 EVERY EVENING TAKE ONE CAPSULE BY MOUTH EVERY MORNING AND 2 EVERY EVENING SOLD: 03/14/2020 [facility] 14 mg/24 hr 07/17/2019 12:00:00 AM EST patch 24 hour 28 USE DIRECTED ONCE DAILY MAXIMUM DAILY DOSE = 1 USE DIRECTED ONCE DAILY MAXIMUM DAILY DOSE = 1 SOLD: 07/18/2019 [facility] 36 mg 07/11/2019 12:00:00 AM EST tablet extended release 24hr 30 TAKE 1 TABLET BY MOUTH ONCE DAILY MAXIMUM DAILY DOSE = 1 TAKE 1 TABLET BY MOUTH ONCE DAILY MAXIMUM DAILY DOSE = 1 SOLD: 07/14/2019 [facility] 36 mg 06/12/2019 12:00:00 AM EST tablet extended release 24hr 30 TAKE 1 TABLET BY MOUTH ONCE DAILY IN THE MORNING MAXIMUM DAILY DOSE = 1 TAKE 1 TABLET BY MOUTH ONCE DAILY IN THE MORNING MAXIMUM DAILY DOSE = 1 SOLD: 06/12/2019 [facility] 200 mg 05/25/2019 12:00:00 AM EST capsule 90 TAKE ONE CAPSULE BY MOUTH THREE TIMES A DAY, MAXIMUM DAILY DOSE = 3 TAKE ONE CAPSULE BY MOUTH THREE TIMES A DAY, MAXIMUM DAILY DOSE = 3 SOLD: 05/26/2019 [facility] 200 mg 05/25/2019 12:00:00 AM EST capsule 90 TAKE ONE CAPSULE BY MOUTH THREE TIMES A DAY, MAXIMUM DAILY DOSE = 3 TAKE ONE CAPSULE BY MOUTH THREE TIMES A DAY, MAXIMUM DAILY DOSE = 3 SOLD: 06/25/2019 [facility] 300 mg 05/07/2019 12:00:00 AM EST tablet 60 TAKE ONE TABLET BY MOUTH TWICE A DAY TAKE ONE TABLET BY MOUTH TWICE A DAY SOLD: 07/10/2019 [facility] 300 mg 05/07/2019 12:00:00 AM EST tablet 60 TAKE ONE TABLET BY MOUTH TWICE A DAY TAKE ONE TABLET BY MOUTH TWICE A DAY SOLD: 06/12/2019 [facility] Propranolol Hydrochloride 10 MG Oral Tablet propranolo l 10 mg tablet propranolol 10 mg tablet completed propranolol hydrochloride 10 MG Oral Tablet [facility] ([facility]) pregabalin 100 MG Oral Capsule pregabalin 100 mg capsu le pregabalin 100 mg capsule completed pregabalin 100 MG Oral Capsule [place] ([facility]) Clindamycin 300 MG Oral Capsule clindamycin HCl 300 mg capsule clindamycin HCl 300 mg capsule completed clindam ycin 300 MG Oral Capsule [facility] ([facility]) [place] Carbonate 300 MG Oral Capsule lithium carbonat e 300 mg capsule lithium carbonate 300 mg capsule completed lithium carbonate 300 MG Oral Capsule [place] ([facility]) 24 HR Nicotine 0.583 MG/HR Transdermal P atch nicotine 14 mg/24 hr daily transdermal patch nicotine 14 mg/24 hr daily transdermal patch completed 24 HR nicotine 0.583 MG/HR Trans dermal System [place] ([facility]) pregabalin 200 MG Oral Capsule pregabalin 200 mg capsu le pregabalin 200 mg capsule completed pregabalin 200 MG Oral Capsule [place] ([facility]) Amoxicillin 875 MG / Clavulanate 125 MG Oral Tablet amoxicillin 875 mg-potassium clavulanate 125 mg tablet amoxicillin 875 mg-potassium clavulanate 125 mg tablet completed amoxici llin 875 MG / clavulanate 125 MG Oral Tablet [place] ([facility]) Clindamycin 300 MG Oral Capsule clindamycin HCl 300 mg capsule clindamycin HCl 300 mg capsule completed clindam ycin 300 MG Oral Capsule [place] ([facility]) Ketorolac Tromethamine 10 MG Oral Tablet ketorolac 10 mg tablet ketorolac 10 mg tablet completed ketorolac trome thamine 10 MG Oral Tablet [place] ([facility]) Sulfamethoxazole 800 MG / Trimethoprim 1 60 MG Oral Tablet sulfamethoxazole 800 mg-trimethoprim 160 mg tablet sulfamethoxazole 800 mg-trimethoprim 160 mg tablet completed sulfame thoxazole 800 MG / trimethoprim 160 MG Oral Tablet [place] ([facility]) pregabalin 100 MG Oral Capsule pregabalin 100 mg capsu le pregabalin 100 mg capsule completed pregabalin 100 MG Oral Capsule [place] ([facility]) Asenapine 2.5 MG Sublingual Tablet [Saphris] Saphris 2 .5 mg sublingual tablet Saphris 2.5 mg sublingual tablet compl eted asenapine 2.5 MG Sublingual Tablet [Saphris] [facility] ([facility]) Prednisone 20 MG Oral Tablet prednisone 20 mg tablet prednisone 20 mg tablet completed prednisone 20 MG Oral Tablet [place] ([facility]) Fluconazole 150 MG Oral Tablet fluconazole 150 mg tabl et fluconazole 150 mg tablet completed fluconazole 150 MG Oral Tablet [facility] ([facility]) Prednisone 10 MG Oral Tablet prednisone 10 mg tablet prednisone 10 mg tablet completed prednisone 10 MG Oral Tablet [place] ([facility]) Prednisone 10 MG Oral Tablet prednisone 10 mg tablet prednisone 10 mg tablet completed prednisone 10 MG Oral Tablet [place] ([facility]) Prednisone 20 MG Oral Tablet prednisone 20 mg tablet prednisone 20 mg tablet completed prednisone 20 MG Oral Tablet [place] ([facility]) Alprazolam 0.5 MG Oral Tablet alprazolam 0.5 mg tablet alpra zolam 0.5 mg tablet completed alprazolam 0.5 MG Oral Tablet [place] ([facility]) Prochlorperazine 10 MG Oral Tablet prochlorperazine ma leate 10 mg tablet prochlorperazine maleate 10 mg tablet completed prochlorperazine 10 MG Oral Tablet [place] ([facility]) Amoxicillin 875 MG / Clavulanate 125 MG Oral Tablet amoxicillin 875 mg-potassium clavulanate 125 mg tablet amoxicillin 875 mg-potassium clavulanate 125 mg tablet completed amoxici llin 875 MG / clavulanate 125 MG Oral Tablet [place] ([facility]) Alprazolam 0.5 MG Oral Tablet alprazolam 0.5 mg tablet alpra zolam 0.5 mg tablet completed alprazolam 0.5 MG Oral Tablet [place] ([facility]) Propranolol Hydrochloride 10 MG Oral Tablet propranolo l 10 mg tablet propranolol 10 mg tablet completed propranolol hydrochloride 10 MG Oral Tablet [facility]) pregabalin 200 MG Oral Capsule pregabalin 200 mg capsu le pregabalin 200 mg capsule completed pregabalin 200 MG Oral Capsule [place] ([facility]) Prochlorperazine 10 MG Oral Tablet prochlorperazine ma leate 10 mg tablet prochlorperazine maleate 10 mg tablet completed prochlorperazine 10 MG Oral Tablet [place] ([facility]) Fluconazole 150 MG Oral Tablet fluconazole 150 mg tabl et fluconazole 150 mg tablet completed fluconazole 150 MG Oral Tablet [place] ([facility]) Asenapine 2.5 MG Sublingual Tablet [Saphris] Saphris 2 .5 mg sublingual tablet Saphris 2.5 mg sublingual tablet compl eted asenapine 2.5 MG Sublingual Tablet [Saphris] [place] ([facility]) 24 HR Nicotine 0.583 MG/HR Transdermal P atch nicotine 14 mg/24 hr daily transdermal patch nicotine 14 mg/24 hr daily transdermal patch completed 24 HR nicotine 0.583 MG/HR Trans dermal System [place] ([facility]) Omeprazole 20 MG Delayed Release Oral Ca psule omeprazole 20 mg capsule,delayed release omeprazole 20 mg capsule,delayed release completed omeprazole 20 MG Delayed Release Oral Capsule [place] ([facility]) Ketorolac Tromethamine 10 MG Oral Tablet ketorolac 10 mg tablet ketorolac 10 mg tablet completed ketorolac trome thamine 10 MG Oral Tablet [place] ([facility]) [place] Carbonate 300 MG Oral Capsule lithium carbonat e 300 mg capsule lithium carbonate 300 mg capsule completed lithium carbonate 300 MG Oral Capsule [place] ([facility]) duloxetine 30 MG Delayed Release Oral Ca psule duloxetine 30 mg capsule,delayed release duloxetine 30 mg capsule,delayed release completed duloxetine 30 MG Delayed Release Oral Capsule [place] ([facility]) Omeprazole 20 MG Delayed Release Oral Ca psule omeprazole 20 mg capsule,delayed release omeprazole 20 mg capsule,delayed release completed omeprazole 20 MG Delayed Release Oral Capsule [place] ([facility]) Insurance Providers Payer name Policy type / Coverage type Policy ID Covered libertarian ID Covered libertarian's relationship to castillo Policy Castillo Plan Information [facility] [id number] SP [id number] [facility] [id number] SP [id number] Managed [facility] Community Plan P [id number] S [id number] Medicaid S [id number] S [id number] Managed Care [facility] Community Plan P [id number] S [id number] [facility] [id number] SP [id number] [facility] [id number] S [id number] [facility] Medicaid F [id number] SELF [id number] Medicaid S [id number] S [id number] [place] Med[place] Part B [id number] Self [id number] [facility] Gabriel Medigap Part B [id number] Self [id number] [facility] Health Maintenance Organization (HMO) [id number] Self [id number] Uh Community Plan Medigap Part B [id number] [place] [id number] [place] [id number] Self [id number] Community Plan Commercial [id number] Self [id number] Managed Care - Community Plan [facility] P [id number] S [id number] Uh Community Plan Medigap Part B [id number] Self [id number] Uh Community Plan Medigap Part B [id number] Self [id number] Self Pay P UNAVAILABLE S UNAVAILA BLE [facility] MEDICAID [id number] Lillie [id number] [facility] MEDICAID PI PI Uh Community Plan Medigap Part B [id number] [place] [id number] [place] [id number] Self [id number] [facility] Gabriel Medigap Part B [id number] Self [id number] UHC Comm Plan Medicaid F [id number] SELF [id number] UHC Comm Plan Medicaid F [id number] SELF [id number] [facility] Community Plan Medigap Part B [id number] Self [id number] [facility] Community Plan Medigap Part B [id number] Self [id number] c Community Plan Medigap Part B [id number] Self [id number] c Community Plan Medigap Part B [id number] Self [id number] [facility] Community Plan Medigap Part B [id number] Self [id number] [facility] COMMUNITY PLAN MCDHMO [id number] SP [id number] [facility] COMMUNITY PLAN MCDHMO [id number] SP [id number] [facility] Community Plan Medigap Part B [id number] Self [id number] [facility] Community Plan Medigap Part B [id number] Self [id number] [facility] O [id number] S [id number] Uh Community Plan Medigap Part B [id number] Self [id number] [facility] Community Plan Medigap Part B [id number] Self [id number] UHC Comm Plan Medicaid F [id number] SELF [id number] MEDICAID M [id number] S [id number] [facility] Community Plan Medigap Part B [id number] Self [id number] [facility] Community Plan Medigap Part B [id number] Self [id number] [employer] COMMUNITY PLAN MCDHMO [id number] SP [id number] [facility] Community Plan Medigap Part B [id number] Self [id number] MEDICAID [id number] SP [id number] [facility] Community Plan Medigap Part B [id number] Self [id number] MEDICAID [id number] SP [id number] SELF PAY ONLY [id number] SP [id number] [facility] COMMUNITY PLAN MCDHMO [id number] SP [id number] [place] Part B [id number] Self [id number] [facility] Medigap Part B [id number] Self [id number] [facility] Health Maintenance Organization (HMO) [id number] Self [id number] [place] Med[place] Part B [id number] Self [id number] [facility]/MCR Medigap Part B [id number] Self [id number] [place] Part B [id number] Self [id number] [facility]/MCR Medigap Part B [id number] Self [id number] [place] Self [facility] COMMUNITY PLAN MCDHMO [id number] SP [id number] [facility] Medigap Part B Self [place] Med[place] Part B Self [facility] Community Plan Medigap Part B Self [facility] Community Plan [place] Wellness 4[place] Wellness 4Me [facility]) O [id number] S [id number] MEDICAID M [id number] Self [id number] MEDICAID [id number] S [id number] MEDICAID PROF FEES [id number] S [id number] MEDICAID PROF FEES [id number] S [id number] MEDICAID [id number] S [id number] MEDICAID GABRIEL [id number] S [id number] Problems, Conditions, and Diagnoses Code Display Name Description Problem Type Effective Dates Data Source(s) 46029723 Allergic rhinitis, unspecified Allergic rhinitis, unsp ecified 11/18/2019 02:02:39 PM EDT [facility] [id number] Mild intermittent asthma, uncomplicated Mild intermittent asthma, uncomplicated 11/18/2019 02:02:39 PM EDT [facility] [id number] Mild intermittent asthma Mild Intermittent Asthma Prob elías 11/18/2019 12:00:00 AM EDT [place] ([facility]) [id number] Allergic rhinitis Allergic Rhinitis Problem 11/18/2019 12:00:00 AM EDT [place] ([facility]) [id number] Mild intermittent asthma Mild Intermittent Asthma Prob elías 11/18/2019 12:00:00 AM EDT [place] ([facility]) [id number] Allergic rhinitis Allergic Rhinitis Problem 11/18/2019 12:00:00 AM EDT [place] ([facility]) Surgeries/Procedures Procedure Description Date Indications Data Source(s) Chemodenervation One Extremity; Five Or More Muscles 05/15/2020 12:00:00 AM EST [facility] ([facility]) Chemodenervation Each Additional Extremity; 5 Or More Muscle s 05/15/2020 12:00:00 AM EST [facility] ([facility]) MRI SPINAL CANAL CERVICAL W/O CONTRAST MATRL 0 12:00:00 AM EDT [facility] ([facility]) MRI SPINAL CANAL CERVICAL W/O CONTRAST MATRL 0 12:00:00 AM EDT [facility] ([facility]) Chemodenervation One Extremity; Five Or More Muscles 02/14/2020 12:00:00 AM EDT [facility] ([facility]) Chemodenervation Each Additional Extremity; 5 Or More Muscle s 02/14/2020 12:00:00 AM EDT [facility] ([facility]) Chemodenervation One Extremity; Five Or More Muscles 11/15/2019 12:00:00 AM EDT [facility] ([facility]) Chemodenervation Each Additional Extremity; 5 Or More Muscle s 11/15/2019 12:00:00 AM EDT [facility] ([facility]) Chemodenervation One Extremity; Five Or More Muscles 08/23/2019 12:00:00 AM EDT [facility] ([facility]) Chemodenervation Each Additional Extremity; 5 Or More Muscle s 08/23/2019 12:00:00 AM EDT [facility] ([facility]) Chemodenervation Each Additional Extremity; One To Four Musc les 05/28/2019 12:00:00 AM EST [facility] ([facility]) Chemodenervation One Extremity; Five Or More Muscles 05/28/2019 12:00:00 AM EST [facility] ([facility]) Needle Electromyography For Guidance 05/28/2019 12:00: 00 AM EST [facility] ([facility]) Results ID Date Data Source [id number] 07/19/2020 11:00:00 AM EST [facility] Name Value Range Interpretation Code Description Data Lesly rce(s) Supporting Document(s) SARS coronavirus 2 RNA Not Detected [facility] [place] This lab was ordered by [facility] and reported by [facility]. ID Date Data Source PAP REQUEST FOR SERVICE 06/10/2020 12:00:00 AM EST eCW1 ([facility]) Name Value Range Interpretation Code Description Data Lesly rce(s) Supporting Document(s) eCW1 ([facility]) ID Date Data Source CHLAMYDIA & GC DNA AMPLIFICAT 06/10/2020 12:00:00 AM EST eCW 1 ([facility]) Name Value Range Interpretation Code Description Data Lesly rce(s) Supporting Document(s) Chlamydia trachomatis rRNA [Presence] in Unspecified specimen by Probe and target amplification method NEGATIVE NEGATIVE [facility] ([facility]) ID Date Data Source [id number] 03/25/2020 08:35:00 AM EDT JR ([facility]) Name Value Range Interpretation Code Description Data Lesly rce(s) Supporting Document(s) ID Date Data Source [id number] 01/17/2020 04:19:43 PM EDT [facility] Measurements & CalculationsHeight: 70 inches (5 ft. 10 in.) 177.80 cm Weight: 262 pounds 119.09 kg Body Mass Index (BMI): 37.73BMI Interpretation: ObeseBody Surface Area (BSA): 2.34Vital SignsTemperature: 98.4F 36.89C tympanic Pulse Rate: 92 beats/minuteRespiratory Rate: 16 respirations/minuteBlood Pressure: 104/71 left arm sitting automaticVital Signs performed by: Tangela Swenson , January 17, 2020 4:29 PMInitial Intake Information From: patientRoom #: 14Infectious Disease / T ravel ScreeningRecent travel for you or any close contacts? NoHave you had any close contact with anyone diagnosed with or under investigation for COVID-19 (coronavirus)? NoFever? NoRespiratory symptoms: cough, cold, congestion, shortness of breath, difficulty breathing? NoLoss of smell? NoLoss of taste? NoSmoking, Tobacco, Vaping or Smoke Exposure StatusSmoke Status: current every day smokerTobacco Use: YesDo you vape? YesCessation advice given: YesWhat is in your device? nicotineFrequency: current every day vaperMenstrual HistoryAny possibility of ? NoComments: irregular, tubal Healthcare HistorySince your last office visit...Have you been admitted to the hospital? NoHave you been to an emergency room (ER) or urgent care clinic? NoHave you seen another healthcare provider? NoHave you seen a dentist? NoIntake performed by: Tangela Swenson , January 17, 2020 4:24 PMRate Your HealthIn general, would you say your health is? GoodPain AssessmentAre you currently having any pain which... You would like your provider to address? Yes Affects your activity level? YesDepression Screening - PHQ-2Over the last two weeks, have you... Had little interest or pleasure in doing things? Not at all Been feeling down, depressed, or hopeless? Not at all PHQ-2 Score: 0Anxiety Screening - NAMITA-2Over the last two weeks, have you been... Feeling nervous, anxious, or on edge? Not at all Unable to stop or control worrying? Not at all NAMITA-2 Score: 0Pain AssessmentPain ScaleNumeric Rating Scale: 5 / 10Location: right sideDuration: chronicFrequency: DailyCharacter/Quality: throbbingIs the pain radiating? NoScreening, Brief Intervention, & Referral to Treatment (SBIRT)Pre-Screening Questions How many times have you have 4 or more drinks in a day? 0How many times have you used an illegal drug or used a prescription medication for a non- medical reason? 365Performed by: Tangela Swenson , January 17, 2020 4:25 PMDAST Have you used drugs other than those required for medical reasons? No Do you abuse more than one drug at a time? No Are you always able to stop using drugs when you want to? Yes Have you ever had blackouts or flashbacks as a result of drug use? No Do you ever feel bad or guilty about your drug use? No Does your spouse (or parents) ever complain about your involvement with your drugs? No Have you neglected your family because of your use of alise gs? No Have you engaged in illegal activities in order to obtain drugs? No Have you ever experienced withdrawal symptoms (felt sick) when you stopped taking drugs? No Have you had medical problems as a result of your drug use (e.g. memory loss, hepatitis, convulsions, bleeding)? NoTrasheeda's Results: DAST Score: 0 DAST Interpretation: Negative Performed by: Tangela Swenson , January 17, 2020 4:26 PMPatient History Medical History:DepressionADHDAnxietyHeartburncerebral palsySurgical History:Reconstruction Sx Right AnkleCorrective Sx Right AnkleFamily History:Cancer - Breast (Maternal Grandmother, Paternal Grandmother)Social/Personal History: Chief Complaintfollow-up visit- discuss medical marijuana/ medsHistory of Present Illness (HPI)Trying to get off Lyrica because it is addictive.Seeing Neurology and Dr. Saucedo for pain and mental health treatment.Smokes marijuana and finds this helpful but would like to get medical marijuana.(Has heard recently that it is being laced with Fentanyl and this makes make her somewhat nervous.)HPI performed by: Narendra Haynes MD, January 17, 2020 4:30 PMProblem ReviewProblem List was reviewed and/or updated during this visit.Medication Reconciliation & ReviewMedication List was reviewed and/or updated during this visit, including review of any hlfi-erc-hmtcocv medications, herbal therapies, and/or supplements.Allergy ReviewAllergy List was reviewed and/or updated during this visit.Provider Calculated and Reviewed all Clinical Protocols for patient today. Cancer Screening Pap Smear/HPV TestingReviewed: Previous Comments: need to schedule one -will schedule with gyno (11/18/2019)Today's Comments: Will schedule with a [facility] 01/17/2020Review of Systems General: Denies dizziness, fatigue. Cardiovascular: Denies chest pain. Respiratory: Denies difficulty breathing, shortness of breath. Physical ExamGeneral Appearance: well nourished, well hydrated, no acute distressRespiratory, Auscultation: clear to auscultation bilaterally; no rales, rhonchi, or wheezesRespiratory, Effort: no intercostal retractions or use of accessory musclesCardiovascular, Auscultation: S1, S2 audible; no murmur, rub, or gallop; RRRPeripheral Circulation: no clubbing, cyanosis, edema, or varicositiesGait & Station: normalSkin, Inspection: no rashes, lesions, or ulcerationsOrientation: oriented to time, place, and personMood & Affect: no depression, anxiety, or agitationJudgment & Insight: intactRate Your HealthIn general, would you say your health is? GoodAssessment & Plan Problems:Assessed:Cerebral palsy, unspecified (MKL86-V22.9) Assessment: Instructions: and chronic pain in multiple sites from multiple etiologies.Getting good relief with recreational marijuana for this as well as her mood.I think this would be medically indicated.She is going to check with her insurance to see if she needs a referral.Recheck here 3 months for chronic pain.Patient Instructions/Care Plan: Cerebral palsy- unspecified: and chronic pa in in multiple sites from multiple etiologies.Getting good relief with recreational marijuana for this as well as her mood.I think this would be medically indicated.She is going to check with her insurance to see if she needs a referral.Recheck here 3 months for chronic pain. Plan developed in collaboration with patient and/or familyMedications:LYRICA 75 MG ORAL CAPSULEFLONASE ALLERGY RELIEF 50 MCG/ACT NASAL SUSPENSIONPROVENTIL HFA 108 (90 BASE) MCG/ACT INHALATION AEROSOL SOLUTIONOCEAN NASAL SPRAY 0.65 % NASAL SOLUTIONFLONASE ALLERGY RELIEF 50 MCG/ACT NASAL SUSPENSIONLITHIUM 300MGCONCERTA 54 MG ERMedication Changes:Added: LYRICA 75 MG ORAL CAPSULERemoved:* LYRICA 200MG-po bidAllergies:IODINE (Mild)Orders:Adult - Ofc Vst, EST, Level III [CPT- 73787] Name Value Range Interpretation Code Description Data Lesly rce(s) Supporting Document(s) ID Date Data Source [id number] 11/18/2019 01:05:14 PM EDT [facility] Measurements & CalculationsHeight: 70 inches 177.80 cm Weight: 270 pounds 122.73 kg Body Mass Index (BMI): 38.88BMI Interpretation: ObeseBody Surface Area (BSA): 2.37Weight Management Education Done (Nutrition/Physical Activity)Vital SignsTemperature: 98.9F 37.17C tympanic Pulse Rate: 91 beats/minuteRespiratory Rate: 16 respirations/minuteBlood Pressure: 122/73 left arm sitting automaticO2 Saturation: 95% room airVital Signs performed by: Patty Batres , November 18, 2019 1:12 PMInitial Intake Information From: patientRoom #: 15Infectious Disease / Travel ScreeningRecent travel for you or any close contacts? NoHave you had any close contact with anyone diagnosed with or under investigation for COVID-19 (coronavirus)? NoFever? NoRespiratory symptoms: cough, cold, congestion, shortness of breath, difficulty breathing? NoLoss of smell? NoLoss of taste? NoSmoking, Tobacco, Vaping or Smoke Exposure StatusSmoke Status: current every day smokerTobacco Use: YesDo you vape? NoMenstrual HistoryLast Menstrual Period (LMP): 11/11/2019LMP History: DefiniteAny possibility of ? NoHealthcare HistorySince your last office visit...Have you been admitted to the hospital? NoHave you been to an emergency room (ER) or urgent care clinic? NoHave you seen another healthcare provider? NoHave you seen a dentist? Yes - dinesIntake performed by: Patty Batres , November 18, 2019 1:09 PMRate Your HealthIn general, would you say your health is? GoodPain AssessmentAre you currently having any pain which... You would like your provider to address? Yes Affects your activity level? YesPain AssessmentPain ScaleNumeric Rating Scale: 7 / 10Location: whole right sideOther DescriptorsAggravating Factors: from cpPRAPARE Sociodemographic Characteristics Race: White Ethnicity: Not or Preferred Language: EnglishScreening, Brief Intervention, & Referral to Treatment (SBIRT)Pre-Screening Questions How many times have you have 4 or more drinks in a day? 0How many times have you used an illegal drug or used a prescription medication for a non-medical reason? 365Performed by: Patty Batres , November 18, 2019 1:09 PMDAST Have you used drugs other than those required for medical reasons? Yes Do you abuse more than one drug at a time? Yes Are you always able to stop using drugs when you want to? Yes Have you ever had blackouts or flashbacks as a result of drug use? No Do you ever feel bad or guilty about your drug use? No Does your spouse (or parents) ever complain about your involvement with your drugs? No Have you neglected your family because of your use of drugs? No Have you engaged in illegal activities in order to obtain drugs? Yes Have you ever experienced withdrawal symptoms (felt sick) when you stopped taking drugs? No Have you had medical problems as a result of your drug use (e.g. memory loss, hepatitis, convulsions, bleeding)? NoToday's Results: DAST Score: 3 DAST Interpretation: Brief Treatment Performed by: Patty Batres , November 18, 2019 1:11 PMPatient History Medical History:DepressionADHDAnxietyHeartburncerebral palsySurgical History:Reconstruction Sx Right AnkleCorrective Sx Right AnkleFamily History:Cancer - Breast (Maternal Grandmother, Paternal Grandmother)Social/Personal History: Nurses Note patient states that she occassionally uses cocaine, but hasn't used in a long timeweaned self to 2 lyrica a dayChief Complaintwould like an inhaler/mask and smoking is making it difficult for her/sinus problems since aprilHistory of Present Illness (HPI)Here for annual visit. Tries to stay active but this is hard because she has cerebral palsy and broke her ankle a few years back. Still has some leg swel ling in her left ankle but she tells me that Ortho has discharged her from their care because they have nothing more to offer.Smokes but has no interest in qiutting.Thinks she is due for another Pap. She has gotten them through [facility] in the past and saw them 3 months ago. They did recommend a repeat Pap at the time but she declined this. She is planning on rescheduling this.Sees Dr. Saucedo for pain management and he has her on Lyrica with good results.I am asking her to sign release of records for her specialists today.Also having issues with nasal congestion and shortness of breath that she thinks is due to having to wear a mask due to pandemic. Has had problems in the past with asthma and allergic rhinitis and these have been worse lately.HPI performed by: Narendra Haynes MD, November 18, 2019 1:51 PMTransitions of Care InboundProblem ReviewProblem List was reviewed and/or updated during this visit.Medication Reconciliation & ReviewMedication List was reviewed and/or updated during this visit, including review of any mbyp-sca-jbrtlmf medications, herbal therapies, and/or supplements.Allergy ReviewAllergy List was reviewed and/or updated during this visit.Adult Preventive CareProvider Calculated and Reviewed all Clinical Protocols for patient today. Labs/Meds/Other Counseling-Nutrition and Physical Activity:BMI Interpretation: Obese (11/18/2019) Counseling: Done (11/18/2019) Physical Activity: Done (11/18/2019)Cancer Screening Pap Smear/HPV TestingReviewed: Previous Comments: appt May (05/17/2019)Today's Comments: need to schedule one -will schedule with gynoReview of Systems General: Denies chills, dizziness, fatigue, fever, headache. Ears/Nose/Throat: Complains of see HPI, nasal congestion. Cardiovascular: Denies chest pain. Respiratory: Complains of see HPI, difficulty breathing, shortness of breath, wheezing. Gastrointestinal: Denies constipation. Genitourinary: Denies pain with urination, burning with urination, urinary frequency, urinary urgency. Physical ExamGeneral Appearance: well nourished, well hydrated, no acute distressRespiratory, Auscultation: clear to auscultation bilaterally; no rales, rhonchi, or wheezesRespiratory, Effort: no intercostal retractions or use of accessory musclesCardiovascular, Auscultation: S1, S2 audible; no murmur, rub, or gallop; RRRAbdomen: soft, non-tender, no masses, bowel sounds normalOrientation: oriented to time, place, and personMood & Affect: no depression, anxiety, or agitationJudgment & Insight: intactCare Management Plan Transitions of CareInboundRate Your HealthIn general, would you say your health is? GoodAssessment & Plan Problems:Added: Allergic rhinitis, unspecified (ICD10- J30.9) Assessment: Instructions: Trial of Flonase.Mild intermittent asthma, uncomplicated (IZO22-W70.20) Assessment: Instructions: Albuterol inhaler.Recheck one month.Assessed:Encounter for general adult medical examination WITH abnormal findings (over 18) (ICD-V70.0) (LSL29-H74.01) Assessment: Instructions: Stay as active as you can and eat healthy.Get records from [facility] about [facility].Paresthesia of foot (ICD-782.0) (ICD10- R20.2) Assessment: Instructions: Recheck as scheduled with Dr. Zohreh fengPatient Instructions/Care Plan: Encounter for general adult medical examination WITH abnormal findings (over 18): Stay as active as you can and eat healthy.Get records from [facility] about [facility].Paresthesia of foot: Recheck as scheduled with Dr. Saucedo.Allergic rhinitis- unspecified: Trial of Flonase.Mild intermittent asthma- uncomplicated: Albuterol inhaler.Recheck one month. Plan developed in collaboration with patient and/or familyMedications:FLONASE ALLERGY RELIEF 50 MCG/ACT NASAL SUSPENSIONPROVENTIL HFA 108 (90 BASE) MCG/ACT INHALATION AEROSOL SOLUTIONOCEAN NASAL SPRAY 0.65 % NA SOLUTIONFLONASE ALLERGY RELIEF 50 MCG/ACT NASAL SUSPENSIONLITHIUM 300MGCONCERTA 54 MG ERLYRICA 200MGMedication Changes:Refilled:FLONASE ALLERGY RELIEF 50 MCG/ACT NASAL [id number]-5-6 sprays each notril bid prn congestion Qty: 1[Milliliter] Refills: 3 Method: ElectronicNew Prescription:PROVENTIL HFA 108 (90 BASE) MCG/ACT INHALATION AEROSOL SOLUTION-2 puffs every 4 hours prn. MDD 8 puffs. Qty: 1[Inhalation] Refills: 0 Method: ElectronicFLONASE ALLERGY RELIEF 50 MCG/ACT NASAL SUSPENSION-2 sprays ech nostril once daily. Qty: 1[Milliliter] Refills: 1 Method: ElectronicRemoved:FLUCONAZOLE 150 MG ORAL TABLET-1 po in 7-10 days prn yeast vagtinitis from abx, AMOXICILLIN-POT CLAVULANATE 875-125 MG ORAL TABLET-1 po bid, AMOXICILLIN-POT CLAVULANATE TABLET- 375 mg bid, NICODERM CQ 7 MG/24HR TRANSDERMAL PATCH 24 HOUR-apply 1 patch daily, NICODERM CQ 14 MG/24HR TRANSDERMAL PATCH 24 HOUR-apply 1 patch daily, * CEPHEXIN 500MG-qid, * CAFFINE 200MG-prn, * ASPIRIN 325 MG-po qd, * BACLOFEN 10MG-2 po qhs, * BUSPIRONE HCL 15MG-bid prn, * CALCIUM 600MG PLUS VITAMIN D 800 IU, * ABILIFY 10MG-po qd, * ZALEPLON 10MG-po qhsChanged:From: ORAL * LYRICA 150MG To: * LYRICA 200MG-po bidAllergies:IODINE (Mild)Orders:Preventive, Est, (18-39) [CPT-38454] Medications:FLONASE ALLERGY RELIEF 50 MCG/ACT NASAL SUSPENSION (FLUTICASONE PROPIONATE) 2 sprays ech nostril once daily. #1[Milliliter] x 1 Route:NASAL Entered and Authorized by: Narendra Haynes MD Method used: Electronically to [facility] (retail) [address] [place] [address] Note to Pharmacy: Route: NASAL; RxID: [id number] HFA 108 (90 BASE) MCG/ACT INHALATION AEROSOL SOLUTION (ALBUTEROL SULFATE) 2 puffs every 4 hours prn. MDD 8 puffs. #1[Inhalation] x 0 Route:INHALATION Entered and Authorized by: Narendra Haynes MD Method used: Electronically to [facility] (retail) [address] [place] [address] Note to Pharmacy: Route: INHALATION; RxID: [id number] ALLERGY RELIEF 50 MCG/ACT NASAL SUSPENSION (FLUTICASONE PROPIONATE) 1-2 sprays each notril bid prn congestion #1[Milliliter] x 3 Route:NASAL Entered by: Patty Batres Authorized by: Narendra Haynes MD Method used: Electronically to [facility] (retail) [address] [place] [address] Note to Pharmacy: Route: NASAL; RxID: [id number] signed by Narendra Haynes MD on 11/18/2019 at 2:02 PM Name Value Range Interpretation Code Description Data Lesly rce(s) Supporting Document(s) Procedure Social History Code Duration Value Status Description Data Source(s ) Smoking 07/02/2020 12:00:00 AM EST Current Smoker completed Curre nt Smoker eCW1 ([facility]) Smoking 06/10/2020 12:00:00 AM EST Current Smoker completed Curre nt Smoker eCW1 ([facility]) Smoking 06/10/2020 12:00:00 AM EST Current Smoker completed Curre nt Smoker eCW1 ([facility]) Smoking 06/10/2020 12:00:00 AM EST Current Smoker completed Curre nt Smoker eCW1 ([facility]) Vital Signs ID Date Data Source UNK Name Value Range Interpretation Code Description Data Source(s) Body weight 3776 [oz_av] 3776 [oz_av] JR ([facility]) Systolic blood pressure 102 mm[Hg] 102 mm[Hg] A THENA ([facility]) Body mass index (BMI) [Ratio] 33.9 kg/m2 33.9 k g/m2 JR ([facility]) Body height 70 [in_i] 70 [in_i] JR ([facility]) Diastolic blood pressure 67 mm[Hg] 67 mm[Hg] JR ([facility]) Diastolic blood pressure 70 mm[Hg] 70 mm[Hg] eCW1 ([facility]) Systolic blood pressure 112 mm[Hg] 112 mm[Hg] e 1 ([facility]) Body mass index (BMI) [Ratio] 35.11 kg/m2 35.11 kg/m2 [facility]1 ([facility]) Body height 69 [in_i] 69 [in_i] eCW1 ([facility]) Body weight 107.86 kg 107.86 kg W1 ([facility]) Body weight 237.8 [lb_av] 237.8 [lb_av] eCW1 ([facility]) Diastolic blood pressure 78 mm[Hg] 78 mm[Hg] eCW1 ([facility]) Systolic blood pressure 118 mm[Hg] 118 mm[Hg] e CW1 ([facility]) Body mass index (BMI) [Ratio] 35.29 kg/m2 35.29 kg/m2 [facility]1 ([facility]) Body height 69 [in_i] 69 [in_i] eCW1 ([facility]) Body weight 239 [lb_av] 239 [lb_av] eCW1 ([facility]) [place] body weight 145 [lb_av] 145 [lb_av] MEDEN T ([facility], ) Body mass index (BMI) [Ratio] 35.4 kg/m2 35.4 k g/m2 MEDENT ([facility], ) Body weight 240.00 [lb_av] 240.00 [lb_av] MEDEN T ([facility], ) Body height 69 [in_i] 69 [in_i] MEDENT ([facility], ) 5'9" Respiratory rate 20 /min 20 /min MEDENT ( [facility], ) Heart rate 84 /min 84 /min MEDENT ([facility], ) Diastolic blood pressure 80 mm[Hg] 80 mm[Hg] MEDENT ([facility], ) Systolic blood pressure 110 mm[Hg] 110 mm[Hg] M EDENT ([facility], ) Body weight 4024 [oz_av] 4024 [oz_av] JR ([facility]) Systolic blood pressure 112 mm[Hg] 112 mm[Hg] A THEN ([facility]) Body mass index (BMI) [Ratio] 36.1 kg/m2 36.1 k g/m2 JR ([facility]) Body height 70 [in_i] 70 [in_i] JR ([facility]) Diastolic blood pressure 77 mm[Hg] 77 mm[Hg] JR ([facility]) Body weight 4024 [oz_av] 4024 [oz_av] JR ([facility]) Systolic blood pressure 112 mm[Hg] 112 mm[Hg] A THENA ([facility]) Body mass index (BMI) [Ratio] 36.1 kg/m2 36.1 k g/m2 JR ([facility]) Body height 70 [in_i] 70 [in_i] JR ([facility]) Diastolic blood pressure 77 mm[Hg] 77 mm[Hg] JR ([facility]) Body weight 4192 [oz_av] 4192 [oz_av] JR ([facility]) Body height 70 [in_i] 70 [in_i] JR ([facility]) Diastolic blood pressure 71 mm[Hg] 71 mm[Hg] JR ([facility]) Body weight 4192 [oz_av] 4192 [oz_av] JR ([facility]) Systolic blood pressure 104 mm[Hg] 104 mm[Hg] A THENA ([facility]) Body height 70 [in_i] 70 [in_i] JR ([facility]) Diastolic blood pressure 71 mm[Hg] 71 mm[Hg] JR ([facility]) Systolic blood pressure 104 mm[Hg] 104 mm[Hg] A THENA ([facility]) Body mass index (BMI) [Ratio] 37.73 kg/m2 37.73 kg/m2 JR ([facility]) Respiratory rate 16 /min 16 /min MEDENT ( [facility], ) Heart rate 76 /min 76 /min MEDENT ([facility], ) Diastolic blood pressure 70 mm[Hg] 70 mm[Hg] MEDENT ([facility], ) Systolic blood pressure 110 mm[Hg] 110 mm[Hg] M EDENT ([facility], ) Body weight 4320 [oz_av] 4320 [oz_av] JR ([facility]) Systolic blood pressure 122 mm[Hg] 122 mm[Hg] A THENA ([facility]) Body mass index (BMI) [Ratio] 38.88 kg/m2 38.88 kg/m2 JR ([facility]) Body height 70 [in_i] 70 [in_i] JR ([facility]) Diastolic blood pressure 73 mm[Hg] 73 mm[Hg] JR ([facility]) Body weight 4320 [oz_av] 4320 [oz_av] JR ([facility]) Systolic blood pressure 122 mm[Hg] 122 mm[Hg] A THENA ([facility]) Body height 70 [in_i] 70 [in_i] JR ([facility]) Diastolic blood pressure 73 mm[Hg] 73 mm[Hg] JR ([facility]) Body weight 117.936 kg 117.936 kg MEDENT ([facility], ) Body mass index (BMI) [Ratio] 38.4 kg/m2 38.4 k g/m2 MEDENT ([facility], ) Body weight 260.00 [lb_av] 260.00 [lb_av] MEDEN T ([facility], ) Body height 69 [in_i] 69 [in_i] MEDENT ([facility], ) 5'9" Respiratory rate 16 /min 16 /min MEDENT ( [facility], ) Heart rate 88 /min 88 /min MEDENT ([facility], ) Diastolic blood pressure 80 mm[Hg] 80 mm[Hg] MEDENT ([facility], ) Systolic blood pressure 118 mm[Hg] 118 mm[Hg] M EDENT ([facility], ) Body mass index (BMI) [Ratio] 38.4 kg/m2 38.4 k g/m2 MEDENT ([facility] ) Body weight 260.00 [lb_av] 260.00 [lb_av] MEDEN T ([facility] ) Body height 69 [in_i] 69 [in_i] MEDENT ([facility] ) 5'9" Body temperature 97.6 [degF] 97.6 [degF] MEDENT ([facility] ) Patient Treatment Plan of Care Planned Activity Planned Date Details Description Data Source (s) Asenapine 2.5 MG Sublingual Tablet [Saphris] JR ([facility]) Propranolol Hydrochloride 10 MG Oral Tablet JR ([facility]) Prochlorperazine 10 MG Oral Tablet JR ([facility]) pregabalin 200 MG Oral Capsule JR ([facility]) pregabalin 100 MG Oral Capsule JR ([facility]) Prednisone 20 MG Oral Tablet JR ([facility]) Prednisone 10 MG Oral Tablet JR ([facility]) Sulfamethoxazole 800 MG / Trimethoprim 160 MG Oral Tablet JR ([facility] [facility]) Asenapine 2.5 MG Sublingual Tablet [Saphris] JR ([facility]) Propranolol Hydrochloride 10 MG Oral Tablet JR ([facility]) Prochlorperazine 10 MG Oral Tablet JR ([facility]) pregabalin 200 MG Oral Capsule JR ([facility]) pregabalin 100 MG Oral Capsule JR ([facility]) Prednisone 20 MG Oral Tablet JR ([facility]) Prednisone 10 MG Oral Tablet JR ([facility]) Omeprazole 20 MG Delayed Release Oral Capsule JR ([facility]) 24 HR Nicotine 0.583 MG/HR Transdermal Patch JR ([facility]) [place] Carbonate 300 MG Oral Capsule JR ([facility]) Ketorolac Tromethamine 10 MG Oral Tablet JR ([facility]) Fluconazole 150 MG Oral Tablet JR ([facility]) duloxetine 30 MG Delayed Release Oral Capsule JR ([facility]) Clindamycin 300 MG Oral Capsule JR ([facility]) Amoxicillin 875 MG / Clavulanate 125 MG Oral Tablet JR ([facility]) Alprazolam 0.5 MG Oral Tablet JR ([facility]) Omeprazole 20 MG Delayed Release Oral Capsule JR ([facility]) 24 HR Nicotine 0.583 MG/HR Transdermal Patch JR ([facility]) [place] Carbonate 300 MG Oral Capsule JR ([facility]) Ketorolac Tromethamine 10 MG Oral Tablet JR ([facility]) Fluconazole 150 MG Oral Tablet JR ([facility]) Clindamycin 300 MG Oral Capsule JR ([facility]) Amoxicillin 875 MG / Clavulanate 125 MG Oral Tablet JR ([facility]) Alprazolam 0.5 MG Oral Tablet JR ([facility])
[2020-07-24] MEDS ORDERED: HYDROmorphone HCL 2 MG/ML 1ML VIAL (J1170) As Ordered ONE (10:18)
[2020-07-24] MEDS ORDERED: ONDANSETRON 4MG/2ML VIAL As Ordered ONE (10:18)
[2020-07-24] MEDS ORDERED: dexameTHASONE 4 MG/ML 1ML VIAL (J1100 PER 1MG) As Ordered ONE (10:18)
[2020-07-24] MEDS ORDERED: LIDOCAINE 2% 100MG/5ML SDV (FOR ANES.) As Ordered ONE (10:18)
[2020-07-24] MEDS ORDERED: propofoL 200 MG/20 ML VIAL As Ordered ONE ×3 (10:18→12:27)
[2020-07-24] MEDS ORDERED: MIDAZOLAM INJ 2MG/2ML VIAL (J2250 PER 1MG) As Ordered ONE (10:18)
[2020-07-24] MEDS ORDERED: ROCURONIUM BROMIDE 50 MG/5 ML VIAL As Ordered ONE ×2 (10:18→11:27)
[2020-07-24] MEDS ORDERED: fentaNYL 100 MCG/2 ML INJECTION (J3010) As Ordered ONE (10:18)
[2020-07-24] MEDS ORDERED: KETOROLAC 60MG 2ML VIAL As Ordered ONE (10:18)
[2020-07-24] MEDS ORDERED: BUPIVACAINE HCL 0.25% 10ML VIAL As Ordered ONE (10:22)
[2020-07-24] MEDS ORDERED: LACRILUBE (AKWA TEARS) OPHTH OINT 3.5 GM As Ordered ONE (10:30)
[2020-07-24 11:09] LABS: HEMATOCRIT 42.7 % (36.0-47.0); HEMOGLOBIN 13.2 g/dl (12.0-15.5); MEAN CORPUSCULAR HGB CONC 30.9 g/dl (32.0-36.5); MEAN CORPUSCULAR VOLUME 90.5 fl (80.0-96.0); PLATELET COUNT, AUTOMATED 394 10^3/uL (150-450); RED BLOOD COUNT 4.72 10^6/uL (4.00-5.40); WHITE BLOOD COUNT 13.3 10^3/uL (4.0-10.0)
[2020-07-24] MEDS ORDERED: SUGAMMADEX SODIUM 500 MG/5 ML VIAL (BRIDION) As Ordered ONE (11:57)
[2020-07-24] MEDS ORDERED: oxyCODONE 5MG TAB As Ordered ONE (12:58)
--- NOTE | 2020-07-24 13:00 | ROOPDOC ---
[facility] Report Of Operation Report of Operation DATE OF PROCEDURE: 07/24/20 OPERATIVE REPORT: Preoperative diagnosis: Menorrhagia. Postoperative diagnosis: Same. Procedure: Robotic-assisted laparoscopic hysterectomy, bilateral salpingo- oophorectomy, cystoscopy. Surgeon: Yeny Boykin M.D. Zipper Setter Chainstitch: Rosie Mann NP Findings: Normal uterus. Fallopian tubes with evidence of prior sterilization. 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 Normal right ovary. Normal upper abdomen. EBL: 75 mL's. Urine output: 100 mL's. Operative summary: Patient was taken to the operating room where general endotracheal anesthesia was induced. She was prepped and draped in sterile fashion in the dorsal lithotomy position. A [place] Catheter was placed. A V care uterine manipulator was placed. A Periumbilical incision was made with a scalpel. A Veress needle was placed through this incision. Intra-abdominal location of Veress needle was assessed with saline filled syringe. A pneumoperitoneum was created. The Veress needle was removed. An 8 mm trocar using the Aston Clubiport was inserted through this incision. Three 8 mm suprapubic ports were placed under direct visualization The patient was placed in Trendelenburg position. The da Kiran surgical robot was docked to the ports. Using the fenestrated bipolar instrument and Synchroseal, the IP ligaments and broad ligaments were coagulated and incised. The round ligaments were coagulated and incised. The anterior and posterior leaves of the broad ligament were . Bladder flap was created. The uterine vessels were coagulated and incised using monopolar Endo Jesica. A colpotomy was created in the upper vagina at the level of the V care Cup. The specimen including the uterus, cervix, fallopian tubes and ovaries was removed through the vagina. The vaginal cuff was closed with #1 V lock suture in running fashion. Cystoscopy was performed using a 70 cystoscope. Bilateral ureteral jets were identified. No evidence of injury to the bladder. The cystoscope was removed. All instruments removed. The skin was closed with 4-0 Monocryl subcuticular sutu res. Rosie Mann NP assisted with all aspects of the procedure. She helped position the patient. She helped insert the ports and manipulate the uterus. She removed the specimen. YENY BOYKIN MD Jul 24, 2020 13:00
[2020-07-24] MEDS ORDERED: OXYC1TAB23 PO (13:01)
[2020-07-24] MEDS ORDERED: IBUP-1022 PO (13:03)
[2020-07-24] MEDS ORDERED: oxyCODONE 5MG TAB PO PRN (13:05)
[2020-07-24] MEDS ORDERED: KETOROLAC 30 MG/ML 1ML VIAL IV PRN (13:05)
[2020-07-24] MEDS ORDERED: MORPHINE 4 MG/ML 1ML VIAL/SYRINGE (J2270) IV PRN (13:05)
[2020-07-24] MEDS ORDERED: ONDANSETRON 4MG/2ML VIAL IV PRN ×2 (13:05)
[2020-07-24] MEDS ORDERED: PERCOCET 5MG/325MG TAB PO PRN ×2 (13:05)
[2020-07-24] MEDS ORDERED: LR 1,000 ML IV SCH ×2 (13:05)
[2020-07-24] MEDS ORDERED: fentaNYL 100 MCG/2 ML INJECTION (J3010) IV PRN (13:05)
[2020-07-24 13:38] VITALS: BP 115/77
[2020-07-24 14:10] VITALS: BP 117/77
[2020-07-24 15:10] VITALS: BP 124/79
[2020-07-24 16:47] VITALS: BP 126/80
[2020-07-24] MEDS ORDERED: DOCUSATE SODIUM 100MG CAPSULE PO SCH (21:00)
== END 2020-07-24 17:28 | disposition home or self-care (01) ==
LOC: M SDC 08:32 → M MSPAV 13:43 → M SDC 17:28
PROVIDERS: ATTEND Specialist
DX: N92.0 Excessive and frequent menstruation with regular cycle (principal); N72 Inflammatory disease of cervix uteri; N80.0 Endometriosis of uterus; G43.909 Migraine, unspecified, not intractable, without status migrainosus; F17.218 Nicotine dependence, cigarettes, with other nicotine-induced disorders; F12.10 Cannabis abuse, uncomplicated; K21.9 Gastro-esophageal reflux disease without esophagitis; F41.9 Anxiety disorder, unspecified; F32.9 Major depressive disorder, single episode, unspecified; G80.9 Cerebral palsy, unspecified; Z88.5 Allergy status to narcotic agent; Z79.899 Other long term (current) drug therapy
CPT/HCPCS: 36415; 58571; 85027; 86850; 88307; J0690; J1100; J1170; J1885; J2250; J2405; J3010; S2900

== ENCOUNTER → 2021-01-19 | Outpatient (CLI) | payer OTHER ==
[~2021-01-19] MED LIST changes: +IBUP-1022 PO; -LR 1,000 ML IV ONE; -ceFAZolin SOD 2 GM in IV 1 EA IV ONE
[2021-01-19 16:41] LABS: HEMATOCRIT 41.7 % (36.0-47.0); HEMOGLOBIN 13.2 g/dl (12.0-15.5); MEAN CORPUSCULAR HEMOGLOBIN 29.5 pg (27.0-33.0); MEAN CORPUSCULAR HGB CONC 31.7 g/dl (32.0-36.5); MEAN CORPUSCULAR VOLUME 93.3 fl (80.0-96.0); PLATELET COUNT, AUTOMATED 293 10^3/uL (150-450); RED BLOOD COUNT 4.47 10^6/uL (4.00-5.40); WHITE BLOOD COUNT 8.8 10^3/uL (4.0-10.0)
[2021-01-19 17:11] LABS: ALBUMIN 3.7 GM/DL (3.2-5.2); ALT/SGPT 13 U/L (12-78); BILIRUBIN,TOTAL 0.4 MG/DL (0.2-1.0); BLOOD UREA NITROGEN 8 MG/DL (7-18); CALCIUM LEVEL 8.9 MG/DL (8.5-10.1); CARBON DIOXIDE LEVEL 27 MEQ/L (21-32); CHLORIDE LEVEL 107 MEQ/L (98-107); CHOLESTEROL LEVEL 165 MG/DL (<200); CHOLESTEROL RISK RATIO 3.928 (<5); CREATININE FOR GFR 0.66 MG/DL (0.55-1.30); FREE THYROXINE INDEX 2.4 % (1.3-4.8); GLOMERULAR FILTRATION RATE > 60.0 (>60); GLUCOSE, FASTING 88 MG/DL (70-100); HDL CHOLESTEROL 42 MG/DL (>40); HEMOGLOBIN A1c 4.9 %; LDL CHOLESTEROL 98 MG/DL (<100); LITHIUM LEVEL 0.25 MEQ/L (0.60-1.20); NON-HDL-C 123 MG/DL; POTASSIUM SERUM 4.1 MEQ/L (3.5-5.1); SODIUM LEVEL 139 MEQ/L (136-145); T UPTAKE 32 % (30-39); THYROXINE (T4) 7.4 UG/DL (4.5-12.0); TOTAL PROTEIN 7.2 GM/DL (6.4-8.2); TRIGLYCERIDES LEVEL 123 MG/DL (<150)
== END ==
LOC: M WUC 13:04
PROVIDERS: ATTEND Anesthesiology Pain Medicine
DX: Z51.81 Encounter for therapeutic drug level monitoring (principal); Z55.9 Problems related to education and literacy, unspecified; E66.9 Obesity, unspecified

== ENCOUNTER → 2021-09-15 | Outpatient (CLI) | payer OTHER ==
[~2021-09-15] MED LIST changes: -PROC10TA4 PO; +PROC10TA5 PO
== END ==
LOC: M SOG 09:00
PROVIDERS: ATTEND Orthopaedic Surgery Adult Reconstructive Orthopaedic Surgery
DX: M25.561 Pain in right knee (principal); M25.562 Pain in left knee

== ENCOUNTER → 2021-10-12 | Outpatient (CLI) | payer OTHER | LOC: M PLAIMG 10:41 | PROVIDERS: ATTEND Orthopaedic Surgery Adult Reconstructive Orthopaedic Surgery | DX: M22.2X1 Patellofemoral disorders, right knee (principal); Z53.9 Procedure and treatment not carried out, unspecified reason ==

== ENCOUNTER 2022-12-08 18:21 | Emergency (ER) | payer OTHER ==
[~2022-12-08] VITALS: Ht 175.3 cm; Wt 85.7 kg
[~2022-12-08 18:21] MED LIST changes: -PAXI10TA12 PO; +PAXI10TA13 PO
[2022-12-08 18:22] VITALS: TEMP 96.8; O2SAT 94
[2022-12-08 19:03] LABS: BASO # 0.1 10^3/uL (0.0-0.2); BASO % 0.7 % (0.0-1.0); EOS # 0.2 10^3/uL (0.0-0.5); EOS % 1.4 % (0.0-3.0); HEMATOCRIT 39.9 % (36.0-47.0); HEMOGLOBIN 13.4 g/dl (12.0-15.5); LYMPH # 2.3 10^3/uL (1.5-5.0); LYMPH % 19.7 % (24.0-44.0); MEAN CORPUSCULAR HGB CONC 33.6 g/dl (32.0-36.5); MEAN CORPUSCULAR VOLUME 89.5 fl (80.0-96.0); MONO # 0.6 10^3/uL (0.0-0.8); MONO % 4.9 % (2.0-8.0); NEUTROPHILS # 8.4 10^3/uL (1.5-8.5); PLATELET COUNT, AUTOMATED 331 10^3/uL (150-450); RED BLOOD COUNT 4.46 10^6/uL (4.00-5.40); WHITE BLOOD COUNT 11.6 10^3/uL (4.0-10.0)
[2022-12-08 19:25] LABS: ALBUMIN 4.1 G/DL (3.2-5.2); BILIRUBIN,DIRECT 0.2 MG/DL (<0.4); BILIRUBIN,TOTAL 0.5 MG/DL (0.3-1.2); TOTAL PROTEIN 7.7 G/DL (5.7-8.2)
[2022-12-08 19:34] VITALS: BP 148/78
[2022-12-08] MEDS ORDERED: KETOROLAC 30 MG/ML 1ML VIAL IV ONE (20:55)
[2022-12-08] MEDS ORDERED: METOCLOPRAMIDE INJ 10MG/2ML VIAL IV ONE (22:00)
[2022-12-08 22:55] LABS: LITHIUM LEVEL 0.13 MMOL/L (1.0-1.20)
[2022-12-08] MEDS ORDERED: ACETAMINOPHEN 1000MG 100ML IV BAG IV ONE (22:55)
== END 2022-12-09 00:35 | disposition home or self-care (01) ==
LOC: M ED 18:21
DX: R10.9 Unspecified abdominal pain (principal); F12.10 Cannabis abuse, uncomplicated; Z88.5 Allergy status to narcotic agent; Z91.048 Other nonmedicinal substance allergy status; Z79.1 Long term (current) use of non-steroidal anti-inflammatories (NSAID); Z79.899 Other long term (current) drug therapy
CPT/HCPCS: 74176; 80047; 80076; 80178; 81001; 83690; 85025; 96374; 96375; 99284; J0131; J1885; J2765

== ENCOUNTER → 2023-08-23 | Outpatient (REF) | payer OTHER ==
[~2023-08-23] MED LIST changes: -PREG200C; +PREG200C2; +RISP-106 PO; -RISP-9 PO
[2023-08-23 21:16] LABS: LITHIUM LEVEL 0.14 MMOL/L (1.0-1.20)
== END ==
LOC: M LABWUC 20:30
PROVIDERS: ATTEND Anesthesiology Pain Medicine
DX: F39 Unspecified mood [affective] disorder (principal)

== ENCOUNTER → 2024-02-20 | Outpatient (REF) | payer OTHER ==
[2024-02-20 17:26] LABS: BASO # 0.1 10^3/uL (0.0-0.2); BASO % 1.6 % (0.0-1.0); EOS # 0.3 10^3/uL (0.0-0.5); EOS % 4.2 % (0.0-3.0); HEMATOCRIT 38.1 % (36.0-47.0); HEMOGLOBIN 12.6 g/dl (12.0-15.5); LYMPH # 2.8 10^3/uL (1.5-5.0); LYMPH % 38.4 % (24.0-44.0); MEAN CORPUSCULAR HEMOGLOBIN 30.1 pg (27.0-33.0); MEAN CORPUSCULAR HGB CONC 33.1 g/dl (32.0-36.5); MEAN CORPUSCULAR VOLUME 91.1 fl (80.0-96.0); MONO # 0.4 10^3/uL (0.0-0.8); MONO % 5.3 % (2.0-8.0); NEUTROPHILS # 3.7 10^3/uL (1.5-8.5); NEUTROPHILS % 50.2 % (36.0-66.0); PLATELET COUNT, AUTOMATED 304 10^3/uL (150-450); RED BLOOD COUNT 4.18 10^6/uL (4.00-5.40); WHITE BLOOD COUNT 7.4 10^3/uL (4.0-10.0)
[2024-02-20 17:33] LABS: HEMOGLOBIN A1c 4.8 % (4.0-6.0)
[2024-02-20 17:52] LABS: BLOOD UREA NITROGEN 9 MG/DL (9-23); CALCIUM LEVEL 9.9 MG/DL (8.5-10.1); CARBON DIOXIDE LEVEL 28 MMOL/L (20-31); CHLORIDE LEVEL 105 MMOL/L (98-107); CHOLESTEROL LEVEL 208 MG/DL (<200); CREATININE FOR GFR 0.69 MG/DL (0.55-1.30); GLOMERULAR FILTRATION RATE > 60.0 (>60); GLUCOSE, FASTING 81 MG/DL (60-100); HDL CHOLESTEROL 49.5 MG/DL (>40); LDL CHOLESTEROL 134.9 MG/DL (<100); NON-HDL-C 158.5 MG/DL; POTASSIUM SERUM 4.3 MMOL/L (3.5-5.1); SODIUM LEVEL 138 MMOL/L (136-145); TRIGLYCERIDES LEVEL 118 MG/DL (<150)
[2024-02-20 17:56] LABS: THYROID STIMULATING HORMONE 1.918 uIU/ML (0.55-4.78)
[2024-02-21 08:37] LABS: LITHIUM LEVEL 0.18 MMOL/L (1.0-1.20)
[2024-02-21 13:08] LABS: APPEARANCE, URINE HAZY (CLEAR); BACTERIA, URINE AUTO NEGATIVE (NEGATIVE); BILIRUBIN, URINE AUTO NEGATIVE (NEGATIVE); BLOOD, URINE BLOOD NEGATIVE (NEGATIVE); COLOR, URINE AMBER (YELLOW); GLUCOSE, URINE (UA) AUTO NEGATIVE (NEGATIVE); KETONE, URINE AUTO TRACE mg/dL (NEGATIVE); LEUKOCYTE ESTERASE, URINE AUTO 1+ (NEGATIVE); MUCUS, URINE SMALL (NEGATIVE); NITRITE, URINE AUTO NEGATIVE (NEGATIVE); PROTEIN, URINE AUTO 1+ mg/dL (NEGATIVE); RBC, URINE AUTO 1 /HPF (0-3); SPECIFIC GRAVITY URINE AUTO 1.027 (1.002-1.035); SQUAMOUS EPITHELIAL CELL UR AU 15 /HPF (0-6); UROBILINOGEN, URINE AUTO 0.2 mg/dL (0.0-2.0); WBC, URINE AUTO 1 /HPF (0-3)
== END ==
LOC: M LAB REF 16:48
PROVIDERS: ATTEND Nurse Practitioner Family
DX: Z01.818 Encounter for other preprocedural examination (principal); Z68.25 Body mass index [BMI] 25.0-25.9, adult

== ENCOUNTER → 2024-03-17 | Outpatient (CLI) | payer OTHER | LOC: M LAB 08:06 → M EKG 08:06 | PROVIDERS: ATTEND Nurse Practitioner Family | DX: Z01.818 Encounter for other preprocedural examination (principal) ==

== ENCOUNTER → 2025-04-10 | Outpatient (CLI) | payer OTHER ==
[~2025-04-10] MED LIST changes: -IBUP-1022 PO; +IBUP600T42 PO; +METH36TA13; -METH36TA5
== END ==
LOC: M WUC 13:02
DX: M25.571 Pain in right ankle and joints of right foot (principal); M79.674 Pain in right toe(s); M96.671 Fracture of tibia or fibula following insertion of orthopedic implant, joint prosthesis, or bone plate, right leg

== ENCOUNTER → 2025-05-06 | Outpatient (CLI) | payer OTHER ==
[2025-05-06 17:48] LABS: ESTIMATED AVERAGE GLUCOSE 91.0 MG/DL (60-110)
[2025-05-06 17:57] LABS: ALT/SGPT 14 U/L (7.0-40); AST/SGOT 15 U/L (<34); CALCIUM LEVEL 9.0 MG/DL (8.5-10.1); CARBON DIOXIDE LEVEL 29 MMOL/L (20-31); CHLORIDE LEVEL 106 MMOL/L (98-107); CHOLESTEROL LEVEL 169 MG/DL (<200); CHOLESTEROL RISK RATIO 3.07 (<5); CREATININE FOR GFR 0.65 MG/DL (0.55-1.30); GLOMERULAR FILTRATION RATE > 90.0 (>60); LDL CHOLESTEROL 95.9 MG/DL (<100); LITHIUM LEVEL 0.41 MMOL/L (1.0-1.20); NON-HDL-C 114.1 MG/DL; POTASSIUM SERUM 5.3 MMOL/L (3.5-5.1); SODIUM LEVEL 140 MMOL/L (136-145); TRIGLYCERIDES LEVEL 91 MG/DL (<150)
== END ==
LOC: M PLALAB 15:56
DX: F31.9 Bipolar disorder, unspecified (principal)